=== PATIENT | male | born 1955 | race Caucasian/White ===

== ENCOUNTER → 2016-11-17 | Outpatient (CLI) | payer OTHER ==
[~2016-11-17] MED LIST: ATOR10TA88 PO; CIPR1TAB10 PO; CLON0.2T PO; DILT120C68 PO; LOSA50TA54 PO; METH10TA6 PO; OXYC7.5T65 PO
[2016-11-17 11:43] LABS: BLOOD UREA NITROGEN 17 mg/dl (7-18); BUN/CREATININE RATIO 20.5 (10-20); CREATININE 0.83 mg/dl (0.60-1.40)
[2016-11-17 11:48] LABS: PROSTATE SPECIFIC ANTIGEN < 0.010 ng/ml (0.000-4.000)
== END | disposition home or self-care (01) ==
LOC: C.LABBC 08:36
PROVIDERS: ATTEND Urology
DX: C61 Malignant neoplasm of prostate (principal)

== ENCOUNTER 2022-12-06 17:39 | Inpatient (IN) ==
--- NOTE | 2022-12-06 17:43 | ED Triage Note ---
Date of Service December 06, 2022 History of Present Illness This patient was briefly evaluated while in triage. An abbreviated physical exam was performed. This patient is a 67-year-old Male who presents to the ED for evaluation of shortness of breath. Patient has had a cough and low-grade fever. Physical Exam VITALS: Vitals are noted on the nurse's note and reviewed by myself. GENERAL: This is a 67-year-old male, in no acute distress, well-developed well- nourished. SKIN: The skin was without rashes. HEART: Regular rate and rhythm without murmurs gallops or rubs. LUNGS: Lung sounds diminished throughout. No retractions or accessory muscle use. NEURO: Patient was alert and oriented to person place and time. Initial orders for labs and / or imaging were placed and patient was placed in the waiting area until a bed is available. Please see further documentation for the full ED course.
[2022-12-06 19:00] LABS: Alanine Aminotransferase 32 U/L (7-52); Albumin Globulin Ratio 1.4 (0.9-2); Albumin Level 4.2 gm/dl (3.4-5.0); Alkaline Phosphatase 79 U/L (34-104); Anion Gap 7 (3-11); Aspartate Aminotransferase 28 U/L (13-39); BUN Creatinine Ratio 15.8 (10-20); Bilirubin,Total 0.4 mg/dl (0.2-1.0); Blood Urea Nitrogen 12 mg/dl (6-23); Carbon Dioxide 27 mmol/L (21-32); Chloride 104 mmol/L (98-107); Est GFR (Non-African American) 95.7 ml/min; Glucose 121 mg/dl (70-99(Fasting)); Sodium 138 mmol/L (136-145); Total Protein 7.2 gm/dl (6.0-8.3)
[2022-12-06 19:05] LABS: Troponin I High Sensitivity 9.8 pg/ml (0-20)
[2022-12-06 19:15] LABS: Basophils # (auto) 0.02 K/uL (0-0.2); Basophils % (auto) 0.3 %; Eosinophils # (auto) 0.13 K/uL (0-0.50); Eosinophils % (auto) 2.1 %; Hematocrit (blood only) 45.1 % (42.0-52.0); Hemoglobin 15.5 g/dl (14.0-18.0); Immature Granulocytes # (auto) 0.01 K/uL (0.01-0.20); Immature Granulocytes % (auto) 0.2 %; Lymphocytes # (auto) 1.17 K/uL (1.2-3.4); Lymphocytes % (auto) 19.1 %; Mean Corpuscular Hgb Conc 34.4 g/dL (32.0-36.0); Mean Corpuscular Volume 87.2 fL (80.0-100.0); Mean Platelet Volume 9.7 fL (9.4-12.4); Monocytes # (auto) 0.63 K/uL (0.11-0.59); Monocytes % (auto) 10.3 %; Neutrophils # (auto) 4.16 K/uL (1.40-6.50); Platelet Count 211 K/uL (130-400); RDW Coefficient of Variation 12.9 % (11.5-14.5); RDW Standard Deviation 41.6 fL (36.4-46.3); Red Blood Count 5.17 M/uL (4.70-6.10); White Blood Count 6.12 K/ul (4.8-10.8)
--- NOTE | 2022-12-06 19:15 | Emergency Department Note ---
Impression & Plan Hypoxia, Reactive airway disease, H/O: HTN (hypertension) ED Provider Note NAME: ZE DURON AGE: 67 SEX: M : 1955 ARRIVES VIA: Walk-In INFORMANT: Patient, ED PROVIDER(S): Israel Bales MD CHIEF COMPLAINT: Shortness of breath MEDICAL DECISION MAKING: Patient was seen for shortness of breath. Blood work had been obtained which showed a normal white count H&H and platelet count. Kidney function was unremarkable. Magnesium and BMP were ordered. COVID flu and RSV ordered. Patient's EKG with no signs of obvious arrhythmia or ischemia. Patient's mag and BNP did not show any abnormality. Upon reassessment the patient was noted to be hypoxemic and still has significant wheezing. The patient was ordered medication for his blood pressure in addition to DuoNeb. The patient was placed on supplemental nasal cannula oxygen. I did speak the on-call hospitalist Dr. Perdomo and the patient was admitted to the medicine service. Critical Care: I have personally spent 37 minutes of critical care time in direct management of this patient. This includes bedside care, interpretation of diagnostic studies, and testing, discussion with consultants, patient, and family members, and other require inpatient management activities. This 37 minutes is in excess of all separately billable procedures. Prior /Outside records reviewed: Did review the patient's weights and is virtually unchanged since September. Patient did have a cardiology visit by Dr. Ford in September 2022. The patient was seen for dizziness hypertension and hypercholesterolemia. Differential diagnosis: Reactive airway disease, pneumonia, pneumothorax, COPD, CHF, infections, cardiac ischemia, pulmonary embolism, musculoskeletal, gastrointestinal, as well as other pathologies. Diagnostics, as interpreted by me: ECG: Normal sinus rhythm, rate of 71, normal intervals left axis deviation T wave version aVL not in [address] elevations. Cardiac monitoring: An order was placed for continuous cardiac monitoring. The monitor shows a rate of 72 with sinus rhythm. Patient was placed on pulse oximetry Medical decision rules: None Imaging studies: See below HPI: Patient presents with shortness of breath and associated dry cough that is been ongoing since Monday. The patient has had worsening shortness of breath. No fevers or chills. The patient does have chronic lower extremity edema which is unchanged. No calf pain or erythema and the patient denies any recent surgeries procedures or hospitalizations and has no prior history of DVT or PE. The patient was most recently L back in September and had some similar symptoms at that time. No formal diagnosis. Patient denies any recent travel but the patient's who was at bedside did have some similar symptoms in the last week. Patient did take his morning medications. No chest pains nausea vomiting or diarrhea. He has noticed that he has some wheezing. No throat pain. PAST MEDICAL HISTORY: See Below PAST SURGICAL HISTORY: See Below SOCIAL HISTORY: See Below HOME MEDICATIONS: See Below ALLERGIES: See Below VITALS: See Below PHYSICAL EXAMINATION: GENERAL: NAD, wearing a mask, non-toxic. EYE EXAM: Normal conjunctiva. PERRL, no anisocoria and EOM's grossly intact w/o pain. NECK: Supple, no nuchal rigidity, no adenopathy, non-tender. No signs of meningismus. FROM of the neck with good chin to chest and neck extension. No stridor. LUNGS: Inspiratory and aspiratory wheezing noted. Normal chest wall mechanics. HEART: NSR, no MRG. ABDOMEN: Abdomen soft, non-tender, normo-active bowel sounds, no masses, no rebound or guarding. BACK: No CVA TTP. SKIN: No rashes and no bruising. UPPER EXTREMITIES: Upper extremities are grossly normal. LOWER EXTREMITIES: Grossly normal, 1+ symmetric bilateral lower extremity edema without any calf pain or erythema. Negative Homans' sign bilaterally. NEURO EXAM: A&O x3, cranial nerves II-XII grossly intact, normal speech, moves all 4 extremities. Past Med/Surg History Medical History Edema Graves disease Hypercholesterolemia Prostate cancer Type 2 diabetes mellitus Uncontrolled hypertension Surgical History History of tonsillectomy and adenoidectomy S/P appendectomy S/P prostatectomy S/P shoulder surgery Status post carpal tunnel release Family History Father Chronic bronchitis Mother Hypertension Stroke syndrome Denies family history of Ovarian cancer Prostate cancer Myocardial infarction Breast cancer Colorectal cancer Social History Smoking Status: Former smoker Tobacco Type: Cigarettes Age Started Using Tobacco: 14; Age Quit Using Tobacco: 52; packs per day: 1; Second Hand Exposure: No; Hx Alcohol Use: No Hx Substance Use: No Preferred Language: Palestinian Communication Ability: Effective Visual Impairment: No Limitations Hearing 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: 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 marital status: Current Living Situation: Spouse current occupational status: employed current occupation: [id number] How many Children do You have: 2 Feels Safe at Home: Yes Childhood Exposure to Second-Hand Smoke: No Dental Care, Regularly: Yes Physical Activity Frequency: Daily Seatbelt Use: always Sunscreen Use: No Allergies Allergies Allergy/AdvReac Type Severity Reaction Status Date / Time bee venom protein (honey bee) Allergy Severe FULL BODY Verified 12/06/22 19:49 SWELLING-NO SOB Home Meds Home Medications Medication Instructions Recorded Confirmed aspirin 81 mg tablet,delayed 81 mg PO DAILY 03/26/21 12/06/22 release clonidine HCl 0.3 mg tablet 0.3 mg PO DAILY PRN UNCONTROLLED 12/06/22 12/06/22 HYPERTENSION losartan 50 mg-hydrochlorothiazide 1 tab PO BID 12/06/22 12/06/22 12.5 mg tablet metformin 500 mg tablet 500 mg PO BID 12/06/22 12/06/22 Previous Rx's Medication Instructions Recorded meloxicam 15 mg tablet 15 mg PO DAILY #30 tabs 08/08/22 cyclobenzaprine 10 mg tablet 10 mg PO TID PRN muscle spasm #60 08/23/22 tabs doxazosin 4 mg tablet 4 mg PO DAILY #90 tabs 09/19/22 atorvastatin 10 mg tablet 10 mg PO DAILY #90 tabs 10/03/22 Results & Data (ED) Vital Signs Vital Signs - 24 hr 12/06/22 17:43 12/06/22 18:20 12/06/22 20:38 Temperature 36.8 C Temperature Source Temporal Artery Scan Pulse Rate 80 Pulse Rate [Right Finger] 71 Respiratory Rate 18 20 17 Respiratory Effort / Characteristics Non-Labored Spontaneous Non-Labored Spontaneous Respiratory Depth Normal Normal Respiratory Pattern Regular Blood Pressure 232/143 H Blood Pressure [Right Arm] 180/107 H Blood Pressure Mean 172 Blood Pressure Mean [Right Arm] 131 Pulse Oximetry 93 93 89 L Oxygen Delivery Method Room Air Room Air Sepsis Recent Fever Within 48 Hours No Sepsis New/Unexplained Change in Mental Status No Sepsis Action Taken by Nursing No Action Required 12/06/22 21:00 12/06/22 21:30 Temperature Temperature Source Pulse Rate 93 H 105 H Pulse Rate [Right Finger] Respiratory Rate 20 Respiratory Effort / Characteristics Respiratory Depth Respiratory Pattern Blood Pressure 193/88 H Blood Pressure [Right Arm] Blood Pressure Mean 123 Blood Pressure Mean [Right Arm] Pulse Oximetry 90 92 Oxygen Delivery Method Sepsis Recent Fever Within 48 Hours Sepsis New/Unexplained Change in Mental Status Sepsis Action Taken by Correction Medications Current Medication List: was personally reviewed by me Laboratory Data Attestation: I reviewed the patient's lab results. 12/06/22 18:15 12/06/22 18:15 Lab Results 12/06/22 12/06/22 12/06/22 Range/Units 18:15 18:15 18:15 WBC 6.12 (4.8-10.8) K/ul RBC 5.17 (4.70-6.10) M/uL Hgb 15.5 (14.0-18.0) g/dl Hct 45.1 (42.0-52.0) % MCV 87.2 (80.0-100.0) fL MCH 30.0 (25.0-34.0) pg MCHC 34.4 (32.0-36.0) g/dL RDW Std Deviation 41.6 (36.4-46.3) fL RDW Coeff of Pierre 12.9 (11.5-14.5) % Plt Count 211 (130-400) K/uL MPV 9.7 (9.4-12.4) fL Immature Gran % (Auto) 0.2 % Neut % (Auto) 68.0 % Lymph % (Auto) 19.1 % [place] % (Auto) 10.3 % Eos % (Auto) 2.1 % Baso % (Auto) 0.3 % Neut # (Auto) 4.16 (1.40-6.50) K/uL Lymph # (Auto) 1.17 L (1.2-3.4) K/uL [place] # (Auto) 0.63 H (0.11-0.59) K/uL Eos # (Auto) 0.13 (0-0.50) K/uL Baso # (Auto) 0.02 (0-0.2) K/uL Immature Gran # (Auto) 0.01 (0.01-0.20) K/uL Sodium 138 (136-145) mmol/L Potassium 4.0 (3.5-5.1) mmol/L Chloride 104 (98-107) mmol/L Carbon Dioxide 27 (21-32) mmol/L Anion Gap 7 (3-11) BUN 12 (6-23) mg/dl Creatinine 0.76 (0.6-1.4) mg/dl Est Cr Clr Drug Dosing Not Reportable Est GFR ( Amer) 111.0 ml/min Est GFR (Non-Af Amer) 95.7 ml/min BUN/Creatinine Ratio 15.8 (10-20) Glucose 121 H (70-99(Fasting)) mg/dl Calcium 9.0 (8.5-10.1) mg/dl Magnesium 1.8 (1.7-2.4) mg/dl Total Bilirubin 0.4 (0.2-1.0) mg/dl AST 28 (13-39) U/L ALT 32 (7-52) U/L Alkaline Phosphatase 79 (34-104) U/L Troponin I High Sens 9.8 (0-20) pg/ml B-Natriuretic Peptide (0-100) pg/ml Total Protein 7.2 (6.0-8.3) gm/dl Albumin 4.2 (3.4-5.0) gm/dl Globulin 3.0 (2.5-4.0) gm/dl Albumin/Globulin Ratio 1.4 (0.9-2) SARS-CoV-2 (PCR) NEGATIVE (Negative) Influenza Type A (PCR) Negative (Neg) Influenza Type B (PCR) Negative (Neg) RSV (RT-PCR) Negative (Neg) 12/06/22 Range/Units 18:15 WBC (4.8-10.8) K/ul RBC (4.70-6.10) M/uL Hgb (14.0-18.0) g/dl Hct (42.0-52.0) % MCV (80.0-100.0) fL MCH (25.0-34.0) pg MCHC (32.0-36.0) g/dL RDW Std Deviation (36.4-46.3) fL RDW Coeff of Pierre (11.5-14.5) % Plt Count (130-400) K/uL MPV (9.4-12.4) fL Immature Gran % (Auto) % Neut % (Auto) % Lymph % (Auto) % [place] % (Auto) % Eos % (Auto) % Baso % (Auto) % Neut # (Auto) (1.40-6.50) K/uL Lymph # (Auto) (1.2-3.4) K/uL [place] # (Auto) (0.11-0.59) K/uL Eos # (Auto) (0-0.50) K/uL Baso # (Auto) (0-0.2) K/uL Immature Gran # (Auto) (0.01-0.20) K/uL Sodium (136-145) mmol/L Potassium (3.5-5.1) mmol/L Chloride (98-107) mmol/L Carbon Dioxide (21-32) mmol/L Anion Gap (3-11) BUN (6-23) mg/dl Creatinine (0.6-1.4) mg/dl Est Cr Clr Drug Dosing Est GFR ( Amer) ml/min Est GFR (Non-Af Amer) ml/min BUN/Creatinine Ratio (10-20) Glucose (70-99(Fasting)) mg/dl Calcium (8.5-10.1) mg/dl Magnesium (1.7-2.4) mg/dl Total Bilirubin (0.2-1.0) mg/dl AST (13-39) U/L ALT (7-52) U/L Alkaline Phosphatase (34-104) U/L Troponin I High Sens (0-20) pg/ml B-Natriuretic Peptide 32 (0-100) pg/ml Total Protein (6.0-8.3) gm/dl Albumin (3.4-5.0) gm/dl Globulin (2.5-4.0) gm/dl Albumin/Globulin Ratio (0.9-2) SARS-CoV-2 (PCR) (Negative) Influenza Type A (PCR) (Neg) Influenza Type B (PCR) (Neg) RSV (RT-PCR) (Neg) Administered Medications Discontinued Medications Albuterol (Albut/Ipratrop 3mg/0.5mg Neb 3 Ml Vial) 6 ml NEB NOW STA; Protocol Stop: 12/06/22 19:22 Last Admin: 12/06/22 19:57 Dose: 6 ml Documented By: ROLLY Albuterol (Albut/Ipratrop 3mg/0.5mg Neb 3 Ml Vial) 3 ml NEB NOW STA; Protocol Stop: 12/06/22 20:54 Last Admin: 12/06/22 21:00 Dose: 3 ml Documented By: ROLLY Furosemide (Furosemide 40 Mg/4 Ml Vial) 40 mg IV ONE ONE Stop: 12/06/22 20:54 Last Admin: 12/06/22 21:00 Dose: 40 mg Documented By: ROLLY HCTZ/Losartan Potassium (Losartan/Hctz 50/12.5mg Tab) 1 tab PO NOW STA Stop: 12/06/22 20:54 Last Admin: 12/06/22 22:10 Dose: 1 tab Documented By: CHERI Magnesium Sulfate/Dextrose (Magnesium Sulfate / D5w) 1 gm in 100 mls @ 200 mls/hr IV Q30M KRYSTLE Stop: 12/06/22 20:21 Last Infusion: 12/06/22 22:05 Dose: 0 mls/hr Documented By: Admin: 12/06/22 21:00 Dose: 200 mls/hr Documented By: Infusion: 12/06/22 20:27 Dose: 200 mls/hr Documented By: Admin: 12/06/22 19:57 Dose: 200 mls/hr Documented By: ROLLY Azithromycin 500 mg/ Dextrose 255 mls @ 125 mls/hr IV 2230 ONE Stop: 12/07/22 00:32 Last Infusion: 12/07/22 00:41 Dose: 0 mls/hr Documented By: Admin: 12/06/22 22:24 Dose: 125 mls/hr Documented By: CHERI Methylprednisolone (Methylprednisolone 125 Mg/2 Ml Vial) 125 mg IV NOW STA Stop: 12/06/22 19:22 Last Admin: 12/06/22 19:57 Dose: 125 mg Documented By: ROLLY Imaging Data Radiologist's Impression: Chest X-Ray 12/06/22 17:43 XR chest 1V portable HISTORY: Dyspnea COMPARISON: Chest 08/26/2016. FINDINGS: The lungs are clear. Cardiac silhouette is normal in size. No pleural effusions. No pneumothorax. IMPRESSION: No acute process. ACT 112: Negative or not required by law. Electronically signed by: Davy Joe M.D. 12/06/2022 7:27 PM Discharge Plan Visit Data Chief Complaint: Shortness of Breath/Dyspnea Stated Complaint: SOB,HARD TO BREATH WHEN SLEEP, ED Provider: Israel Bales Discharge Problem: Hypoxia, Reactive airway disease, H/O: HTN (hypertension) Patient Disposition: Admitted As Inpatient Discharge Instructions Interventions: ED Discharge Assessment Last Done: 12/06/22 23:58
[2022-12-06] MEDS ORDERED: ALBUT/IPRATROP 3MG/0.5MG NEB 3 ML VIAL NEB STA ×2 (19:21→20:53)
[2022-12-06] MEDS ORDERED: methylPREDNISolone 125 MG/2 ML VIAL IV STA (19:21)
--- NOTE | 2022-12-06 19:28 | XRay Report ---
XR chest 1V portable HISTORY: Dyspnea COMPARISON: Chest 08/26/2016. FINDINGS: The lungs are clear. Cardiac silhouette is normal in size. No pleural effusions. No pneumot horax. IMPRESSION: No acute process. ACT 112: Negative or not required by law. Electronically signed by: Davy Joe M.D. 12/06/2022 7:27 PM
[2022-12-06 19:34] LABS: Influenza A virus by PCR Negative (Neg); Influenza B virus by PCR Negative (Neg); RSV by PCR Negative (Neg); SARS CoV2 RNA(COVID-19) Ceph NEGATIVE (Negative)
[2022-12-06 19:53] LABS: Magnesium 1.8 mg/dl (1.7-2.4)
[2022-12-06] MEDS: MAGNESIUM SULFATE / D5W 1 GM/100 ML BAG IV SCH ×2 (19:57→21:00)
[2022-12-06] MEDS ORDERED: FUROSEMIDE 40 MG/4 ML VIAL IV ONE (20:53)
[2022-12-06] MEDS ORDERED: LOSARTAN/HCTZ 50/12.5MG TAB PO STA (20:53)
--- NOTE | 2022-12-06 21:59 | History & Physical Report ---
Date of Service December 06, 2022 Assessment & Plan (1) Acute respiratory failure with hypoxia: (2) Type 2 diabetes mellitus: (3) Hypercholesterolemia: (4) Graves disease: (5) Benign essential hypertension: (6) Lumbar spinal stenosis: (7) Reactive airway disease: (8) Lower extremity edema: Plan Acute respiratory failure with hypoxia/asthmatic bronchitis- Received Solu-Medrol 125 mg IV and duo nebs x2 from the ED Continue Solu-Medrol 40 mg IV every 8 hours. Duonebs every 4 hours while awake and every 2 hours when necessary. Guaifenesin extended release 1200 mg p.o. twice daily Pulmicort Respules 0.5 mg inhaled twice daily Azithromycin 500 mg IV daily Nasal cannula oxygen, titrate to keep pulse ox 92-94% Lower extremity edema- Received furosemide 40 mg IV from the ED Continue furosemide 40 mg IV every morning Follow clinical examination Serial renal profile and magnesium every morning Diabetes mellitus- Hold metformin Place on Accu-Cheks with NovoLog SSI Check hemoglobin A1c Hypertension- Continue losartan/HCTZ twice daily BPH- Continue doxazosin 4 mg p.o. daily Hyperlipidemia- Continue atorvastatin 10 mg daily History of Present Illness Chief Complaint: The patient presents to the emergency department with complaint of increasing frequency of cough, worsening shortness of breath and dyspnea on exertion, and persistent lower extremity edema. Primary Care Provider: Keagan Spencer, RADHA, AKOSUA The patient is a 67-year-old male with past medical history including hypertension, bilateral hip pain, hypertension, lumbar spinal stenosis, Graves' disease, hypercholesterolemia, diabetes mellitus and morbid obesity. He presents to the emergency department with symptoms as noted above. From the ED he received the following, DuoNeb's x2, magnesium sulfate 1 g IV, methylprednisolone 125 mg IV and furosemide 40 mg IV. Allergies Allergy/AdvReac Type Severity Reaction Status Date / Time bee venom protein (honey bee) Allergy Severe FULL BODY Verified 12/06/22 19:49 SWELLING-NO SOB Home Medications Medication Instructions Recorded Confirmed Type aspirin 81 mg tablet,delayed 81 mg PO DAILY 03/26/21 12/06/22 History release meloxicam 15 mg tablet 15 mg PO DAILY #30 tabs 08/08/22 12/06/22 Rx cyclobenzaprine 10 mg tablet 10 mg PO TID PRN muscle spasm #60 08/23/22 12/06/22 Rx tabs doxazosin 4 mg tablet 4 mg PO DAILY #90 tabs 09/19/22 12/06/22 Rx atorvastatin 10 mg tablet 10 mg PO DAILY #90 tabs 10/03/22 12/06/22 Rx clonidine HCl 0.3 mg tablet 0.3 mg PO DAILY PRN UNCONTROLLED 12/06/22 12/06/22 History HYPERTENSION losartan 50 mg-hydrochlorothiazide 1 tab PO BID 12/06/22 12/06/22 History 12.5 mg tablet metformin 500 mg tablet 500 mg PO BID 12/06/22 12/06/22 History Past Med/Surg History Medical History (Updated 12/07/22 @ 03:04 by Jeremi Villarreal MD) Edema Graves disease Hypercholesterolemia Prostate cancer Type 2 diabetes mellitus Uncontrolled hypertension Surgical History History of tonsillectomy and adenoidectomy S/P appendectomy S/P prostatectomy S/P shoulder surgery Status post carpal tunnel release Family History Father Chronic bronchitis Mother Hypertension Stroke syndrome Denies family history of Ovarian cancer Prostate cancer Myocardial infarction Breast cancer Colorectal cancer Social History Smoking Status: Former smoker Tobacco Type: Cigarettes Age Started Using Tobacco: 14; Age Quit Using Tobacco: 52; packs per day: 1; Second Hand Exposure: No; Hx Alcohol Use: No Hx Substance Use: No Preferred Language: Sammarinese Communication Ability: Effective Visual Impairment: No Limitations Hearing Ability: Normal 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 and Voice marital status: Current Living Situation: Spouse current occupational status: employed current occupation: [id number] How many Children do You have: 2 Feels Safe at Home: Yes Childhood Exposure to Second-Hand Smoke: No Dental Care, Regularly: Yes Physical Activity Frequency: Daily Seatbelt Use: always Sunscreen Use: No Review of Systems Review of Systems: The patient denies chest pain, palpitations, sore throat, fevers, chills, sweats, nausea, vomiting, diarrhea , constipation, abdominal pain, pelvic pain, blood in urine or stool, dysuria, urinary frequency or urgency, lightheadedness, dizziness, headache, memory loss, loss of consciousness, rash, abnormal bruising or bleeding, imbalance, focal or generalized weakness, numbness or tingling in arms or legs, generalized arthralgias or myalgias, back or neck pain, or night sweats. The review of systems is otherwise negative other than for that already noted above, and at least 10 systems have been reviewed. Physical Exam Physical Exam: The patient is awake, alert and oriented 3, well developed and well nourished, normocephalic and atraumatic, lying in bed and in mild distress. HEENT--PERRL, EOMI, mucous membranes and oropharynx dry. Neck--supple. No JVD. No bruits. Thyroid normal, trachea midline, no adenopathy. Heart--normal S1 and S2. No murmurs, rubs or gallops. Lungs--inspiratory and expiratory wheezes bilaterally throughout. Mild intermittent respiratory distress, no accessory muscle use. Abdomen--normal bowel sounds and soft. Nontender. Nondistended, no hernias or masses, no organomegaly. Extremities--no cyanosis or clubbing. There is 1+ bilateral pretibial pitting edema Dermatologic--normal skin turgor, normal color, no abnormal lymph nodes, no rash. Neurologic--cranial nerves II through XII grossly intact. Rheumatologic--normal range of motion. Psychiatric--normal affect. Results & Data Results & Data ([facility]) Vital Signs (Past 12 Hours) Vital Signs Temp Pulse Pulse Resp BP BP Pulse Ox 12/06/22 18:20 71 20 180/107 H 93 12/06/22 17:43 36.8 C 80 18 232/143 H 93 O2 Del Method 12/06/22 18:20 Room Air 12/06/22 17:43 Room Air Laboratory Results Laboratory Results WBC 6.12 K/ul (4.8-10.8) 12/06/22 18:15 RBC 5.17 M/uL (4.70-6.10) 12/06/22 18:15 Hgb 15.5 g/dl (14.0-18.0) 12/06/22 18:15 Hct 45.1 % (42.0-52.0) 12/06/22 18:15 MCV 87.2 fL (80.0-100.0) 12/06/22 18:15 MCH 30.0 pg (25.0-34.0) 12/06/22 18:15 MCHC 34.4 g/dL (32.0-36.0) 12/06/22 18:15 RDW Std Deviation 41.6 fL (36.4-46.3) 12/06/22 18:15 RDW Coeff of Pierre 12.9 % (11.5-14.5) 12/06/22 18:15 Plt Count 211 K/uL (130-400) 12/06/22 18:15 MPV 9.7 fL (9.4-12.4) 12/06/22 18:15 Immature Gran % (Auto) 0.2 % 12/06/22 18:15 Neut % (Auto) 68.0 % 12/06/22 18:15 Lymph % (Auto) 19.1 % 12/06/22 18:15 [place] % (Auto) 10.3 % 12/06/22 18:15 Eos % (Auto) 2.1 % 12/06/22 18:15 Baso % (Auto) 0.3 % 12/06/22 18:15 Neut # (Auto) 4.16 K/uL (1.40-6.50) 12/06/22 18:15 Lymph # (Auto) 1.17 K/uL (1.2-3.4) L 12/06/22 18:15 [place] # (Auto) 0.63 K/uL (0.11-0.59) H 12/06/22 18:15 Eos # (Auto) 0.13 K/uL (0-0.50) 12/06/22 18:15 Baso # (Auto) 0.02 K/uL (0-0.2) 12/06/22 18:15 Immature Gran # (Auto) 0.01 K/uL (0.01-0.20) 12/06/22 18:15 Sodium 138 mmol/L (136-145) 12/06/22 18:15 Potassium 4.0 mmol/L (3.5-5.1) 12/06/22 18:15 Chloride 104 mmol/L (98-107) 12/06/22 18:15 Carbon Dioxide 27 mmol/L (21-32) 12/06/22 18:15 Anion Gap 7 (3-11) 12/06/22 18:15 BUN 12 mg/dl (6-23) 12/06/22 18:15 Creatinine 0.76 mg/dl (0.6-1.4) 12/06/22 18:15 Est Cr Clr Drug Dosing Not Reportable 12/06/22 18:15 Est GFR ( Amer) 111.0 ml/min 12/06/22 18:15 Est GFR (Non-Af Amer) 95.7 ml/min 12/06/22 18:15 BUN/Creatinine Ratio 15.8 (10-20) 12/06/22 18:15 Glucose 121 mg/dl (70-99(Fasting)) H 12/06/22 18:15 Calcium 9.0 mg/dl (8.5-10.1) 12/06/22 18:15 Magnesium 1.8 mg/dl (1.7-2.4) 12/06/22 18:15 Total Bilirubin 0.4 mg/dl (0.2-1.0) 12/06/22 18:15 AST 28 U/L (13-39) 12/06/22 18:15 ALT 32 U/L (7-52) 12/06/22 18:15 Alkaline Phosphatase 79 U/L (34-104) 12/06/22 18:15 Troponin I High Sens 9.8 pg/ml (0-20) 12/06/22 18:15 B-Natriuretic Peptide 32 pg/ml (0-100) 12/06/22 18:15 Total Protein 7.2 gm/dl (6.0-8.3) 12/06/22 18:15 Albumin 4.2 gm/dl (3.4-5.0) 12/06/22 18:15 Globulin 3.0 gm/dl (2.5-4.0) 12/06/22 18:15 Albumin/Globulin Ratio 1.4 (0.9-2) 12/06/22 18:15 Urine Color Yellow 12/07/22 00:48 Urine Appearance Clear (Clear) 12/07/22 00:48 Urine pH 5.0 (4.5-7.5) 12/07/22 00:48 Ur Specific [place] 1.008 (1.000-1.030) 12/07/22 00:48 Urine Protein Negative (Negative) 12/07/22 00:48 Urine Glucose (UA) 1+ (Negative) H 12/07/22 00:48 Urine Ketones Negative (Negative) 12/07/22 00:48 Urine Blood Negative (Negative) 12/07/22 00:48 Urine Nitrite Negative (Negative) 12/07/22 00:48 Urine Bilirubin Negative (Negative) 12/07/22 00:48 Urine Urobilinogen Negative (Negative) 12/07/22 00:48 Ur Leukocyte Esterase Negative (Negative) 12/07/22 00:48 SARS-CoV-2 (PCR) NEGATIVE (Negative) 12/06/22 18:15 Influenza Type A (PCR) Negative (Neg) 12/06/22 18:15 Influenza Type B (PCR) Negative (Neg) 12/06/22 18:15 RSV (RT-PCR) Negative (Neg) 12/06/22 18:15 Impressions Chest X-Ray 12/06/22 17:43 XR chest 1V portable HISTORY: Dyspnea COMPARISON: Chest 08/26/2016. FINDINGS: The lungs are clear. Cardiac silhouette is normal in size. No pleural effusions. No pneumothorax. IMPRESSION: No acute process. ACT 112: Negative or not required by law. Electronically signed by: Davy Joe M.D. 12/06/2022 7:27 PM Code Status & VTE Plan Code Status Full code VTE Prophylaxis Plan VTE Prophylaxis will be ordered: Yes PG Care Time/CCT Total # of Minutes Spent Total Time Spent with Patient: Total time spent is greater than 50% in coordination of care (as documented) at patient's floor/unit and/or counseling patient: Coding Level of Care Code 60582 INT INP/OBS CARE 3/75MIN Diagnoses Acute respiratory failure with hypoxia J96.01 Type 2 diabetes mellitus E11.9 Diabetes mellitus oysterman insulin use: without mcc use Diabetes mellitus complication status: without complication Hypercholesterolemia E78.00 Graves disease E05.00 Benign essential hypertension I10 Lumbar spinal stenosis M48.061 Reactive airway disease J45.909 Asthma complication type: with acute exacerbation Asthma severity: unspecified severity Lower extremity edema R60.0 (1) Type 2 diabetes mellitus Diabetes mellitus oysterman insulin use: without mcc use Diabetes mellitus complication status: without complication Qualified Code(s): E11.9 - Type 2 diabetes mellitus without complications (2) Reactive airway disease Asthma complication type: with acute exacerbation Asthma severity: unspecified severity
[2022-12-06] MEDS ORDERED: AZITHROMYCIN 500 MG in DEXTROSE 5% 250 ML IV ONE (22:30)
[2022-12-06] MEDS ORDERED: DEXTROSE 50% 50 ML SYRINGE IV PRN (23:58)
[2022-12-06] MEDS ORDERED: ACETAMINOPHEN 325 MG TAB PO PRN (23:58)
[2022-12-06] MEDS ORDERED: GLUCOSE 10 TAB/TUBE PO PRN (23:58)
[2022-12-06] MEDS ORDERED: GLUCAGON FOR INJ 1 MG VIAL SQ PRN (23:58)
[2022-12-06] MEDS ORDERED: CARBOHYDRATES FOR HYPOGLYCEMIA PO PRN (23:58)
[2022-12-06] MEDS ORDERED: ONDANSETRON INJ 2 MG/ML 2 ML VIAL IV PRN (23:58)
[2022-12-06] MEDS ORDERED: GLUCOSE 40% GEL 15 GM TUBE PO PRN (23:58)
[2022-12-06] MEDS ORDERED: CYCLOBENZAPRINE HCL 10 MG TAB PO PRN (23:58)
[2022-12-07 01:00] LABS: Appearance Urine Clear (Clear); Bilirubin Urine Negative (Negative); Blood Urine Negative (Negative); Color Urine Yellow; Glucose Urine UA 1+ (Negative); Ketones Urine Negative (Negative); Leukocyte Esterase Urine Negative (Negative); Nitrite Urine Negative (Negative); Protein Urine Negative (Negative); Specific Gravity Urine 1.008 (1.000-1.030); Urobilinogen Urine Negative (Negative)
[2022-12-07] MEDS: methylPREDNISolone 40 MG in SYRINGE 0 ML IV SCH ×3 (04:04→20:55)
[2022-12-07 04:37] LABS: Basophils # (auto) 0.01 K/uL (0-0.2); Basophils % (auto) 0.2 %; Hematocrit (blood only) 45.7 % (42.0-52.0); Hemoglobin 15.5 g/dl (14.0-18.0); Immature Granulocytes # (auto) 0.02 K/uL (0.01-0.20); Immature Granulocytes % (auto) 0.4 %; Lymphocytes # (auto) 0.41 K/uL (1.2-3.4); Mean Corpuscular Hgb Conc 33.9 g/dL (32.0-36.0); Mean Corpuscular Volume 85.6 fL (80.0-100.0); Mean Platelet Volume 9.6 fL (9.4-12.4); Monocytes # (auto) 0.08 K/uL (0.11-0.59); Monocytes % (auto) 1.8 %; Neutrophils # (auto) 4.03 K/uL (1.40-6.50); Neutrophils % (auto) 88.6 %; Platelet Count 222 K/uL (130-400); RDW Standard Deviation 40.3 fL (36.4-46.3); Red Blood Count 5.34 M/uL (4.70-6.10); White Blood Count 4.55 K/ul (4.8-10.8)
[2022-12-07 04:50] LABS: Albumin Level 4.5 gm/dl (3.4-5.0); Anion Gap 10 (3-11); BUN Creatinine Ratio 14.5 (10-20); Blood Urea Nitrogen 11 mg/dl (6-23); Calcium 9.4 mg/dl (8.5-10.1); Carbon Dioxide 27 mmol/L (21-32); Chloride 98 mmol/L (98-107); Est GFR (Non-African American) 95.7 ml/min; Glucose 215 mg/dl (70-99(Fasting)); Magnesium 2.1 mg/dl (1.7-2.4); Phosphorus 3.3 mg/dl (2.5-4.9); Potassium 3.9 mmol/L (3.5-5.1); Sodium 135 mmol/L (136-145)
[2022-12-07 06:32] LABS: Estimated Average Glucose 154 mg/dl
[2022-12-07] MEDS: ALBUT/IPRATROP 3MG/0.5MG NEB 3 ML VIAL NEB SCH ×4 (07:39→19:36)
[2022-12-07] MEDS: BUDESONIDE 0.5 MG/2 ML VIAL (PULMICORT) NEB SCH ×2 (07:39→19:34)
[2022-12-07] MEDS: ASPIRIN 81 MG ECTAB PO SCH (08:14)
[2022-12-07] MEDS: guaiFENesin 600 MG TABCR PO SCH ×2 (08:14→20:55)
[2022-12-07] MEDS: INSULIN ASPART PER UNIT SC SCH ×4 (08:15→20:32)
[2022-12-07] MEDS: FUROSEMIDE 40 MG/4 ML VIAL IV SCH (08:15)
[2022-12-07] MEDS: ATORVASTATIN 10 MG TAB PO SCH (08:15)
[2022-12-07] MEDS: DOXAZosin MESYLATE 4 MG TAB PO SCH (08:15)
[2022-12-07] MEDS: LOSARTAN/HCTZ 50/12.5MG TAB PO SCH ×2 (08:15→20:54)
--- NOTE | 2022-12-07 15:25 | Electrocardiogram Report ---
Test Reason : Blood Pressure : / mmHG Vent. Rate : 071 BPM Atrial Rate : 071 BPM P-R Int : 170 ms QRS Dur : 086 ms QT Int : 404 ms P-R-T Axes : 060 -28 079 degrees QTc Int : 439 ms Normal sinus rhythm Normal ECG When compared with ECG of 29-SEP-2004 12:14, QRS axis Shifted left Confirmed by Rajan Pretty ([id number]) on 12/07/2022 3:25:11 PM Referred By: REFERRED SELF Confirmed By:Rajan Pretty
--- NOTE | 2022-12-07 17:41 | Hospitalist Progress Note ---
Date of Service December 07, 2022 Assessment & Plan (1) Acute respiratory failure with hypoxia: Plan: secondary to acute bronchitis, likley viral Continue Solu-Medrol 40 mg IV every 8 hours. Duonebs every 4 hours while awake and every 2 hours when necessary. Guaifenesin extended release 1200 mg p.o. twice daily Pulmicort Respules 0.5 mg inhaled twice daily Azithromycin 500 mg IV daily Nasal cannula oxygen, titrate to keep pulse ox 92-94% (2) Benign essential hypertension: Plan: BP is under good control continue home meds (3) Type 2 diabetes mellitus: Plan: Blood glucose under good control will monitor in view of steroids hold metformin (4) Hypercholesterolemia: (5) Graves disease: (6) Lumbar spinal stenosis: (7) Reactive airway disease: (8) Lower extremity edema: Plan hopefully d/c in the next 24 hrs Admission and Anticipated Discharge Date Admission Date: December 06, 2022 Subjective patient seen and examined, he speaks Icelandic, but by the bedside to interpret. still has some SOB, especially on exertion Review of Systems Review of Systems: All systems reviewed are negative, apart from the ones contained in the history. Physical Exam Physical Exam: The patient is awake, alert and oriented 3, well developed and well nourished, normocephalic and atraumatic, lying in bed and in no acute distress. HEENT--PERRL, EOMI, mucous membranes and oropharynx mildly dry Neck--supple. No JVD. No bruits. Thyroid normal, trachea midline, no adenopathy. Heart--normal S1 and S2. No murmurs, rubs or gallops. Lungs--Reduced air entry Abdomen--normal bowel sounds and soft. Mild epigastric and left sided abdominal pain Extremities--no cyanosis or clubbing. No edema. Dermatologic--normal skin turgor, normal color, no abnormal lymph nodes, no rash. Neurologic--cranial nerves II through XII grossly intact. Rheumatologic--normal range of motion. Psychiatric--normal affect. Results & Data Results & Data ([facility]) Vital Signs (Past 12 Hours) Vital Signs Temp Pulse Resp BP Pulse Ox O2 Del Method O2 Flow Rate 12/07/22 16:07 98.6 F 79 20 125/51 L 93 Nasal Cannula 4 12/07/22 14:09 75 18 94 Nasal Cannula 4 12/07/22 11:39 76 20 94 Nasal Cannula 4 12/07/22 11:34 98.6 F 78 20 130/60 94 Nasal Cannula 4 12/07/22 07:39 101 H 22 91 Nasal Cannula 4 12/07/22 07:22 Nasal Cannula 4 12/07/22 07:16 66 18 161/74 H 93 Nasal Cannula PG Care Time/CCT Total # of Minutes Spent Total Time Spent with Patient: Total time spent is greater than 50% in coordination of care (as documented) at patient's floor/unit and/or counseling patient: Coding Level of Care Code 00970 SUB INP/OBS CARE 235MIN Diagnoses Acute respiratory failure with hypoxia J96.01 Benign essential hypertension I10 Type 2 diabetes mellitus E11.9 Diabetes mellitus deputy juvenile officer insulin use: without [facility] use Diabetes mellitus complication status: without complication Hypercholesterolemia E78.00 Graves disease E05.00 Lumbar spinal stenosis M48.061 Reactive airway disease J45.909 Asthma complication type: with acute exacerbation Asthma severity: unspecified severity Lower extremity edema R60.0 Time Spent (min) 35 (1) Type 2 diabetes mellitus Diabetes mellitus [facility] insulin use: without deputy juvenile officer use Diabetes mellitus complication status: without complication Qualified Code(s): E11.9 - Type 2 diabetes mellitus without complications (2) Reactive airway disease Asthma complication type: with acute exacerbation Asthma severity: unspecified severity
[2022-12-07] MEDS ORDERED: AZITHROMYCIN 500 MG in DEXTROSE 5% 250 ML IV SCH (22:00)
[2022-12-08] MEDS: methylPREDNISolone 40 MG in SYRINGE 0 ML IV SCH ×2 (04:29→12:13)
[2022-12-08 06:12] LABS: Hematocrit (blood only) 45.5 % (42.0-52.0); Hemoglobin 15.7 g/dl (14.0-18.0); Mean Corpuscular Hemoglobin 29.9 pg (25.0-34.0); Mean Corpuscular Hgb Conc 34.5 g/dL (32.0-36.0); Mean Corpuscular Volume 86.7 fL (80.0-100.0); Mean Platelet Volume 9.4 fL (9.4-12.4); Platelet Count 239 K/uL (130-400); RDW Standard Deviation 41.2 fL (36.4-46.3); Red Blood Count 5.25 M/uL (4.70-6.10); White Blood Count 8.81 K/ul (4.8-10.8)
[2022-12-08 06:25] LABS: Albumin Level 4.2 gm/dl (3.4-5.0); Anion Gap 8 (3-11); BUN Creatinine Ratio 35.3 (10-20); Blood Urea Nitrogen 30 mg/dl (6-23); Calcium 9.1 mg/dl (8.5-10.1); Carbon Dioxide 31 mmol/L (21-32); Chloride 99 mmol/L (98-107); Est GFR (Non-African American) 91.4 ml/min; Glucose 160 mg/dl (70-99(Fasting)); Magnesium 2.4 mg/dl (1.7-2.4); Phosphorus 4.1 mg/dl (2.5-4.9); Potassium 4.1 mmol/L (3.5-5.1); Sodium 138 mmol/L (136-145)
[2022-12-08 06:45] LABS: Basophils # (auto) 0.02 K/uL (0-0.2); Basophils % (auto) 0.2 %; Immature Granulocytes # (auto) 0.02 K/uL (0.01-0.20); Immature Granulocytes % (auto) 0.2 %; Lymphocytes # (auto) 1.34 K/uL (1.2-3.4); Lymphocytes % (auto) 15.2 %; Monocytes % (auto) 6.8 %; Neutrophils # (auto) 6.83 K/uL (1.40-6.50); Neutrophils % (auto) 77.6 %
[2022-12-08] MEDS: ALBUT/IPRATROP 3MG/0.5MG NEB 3 ML VIAL NEB SCH ×3 (07:00→16:04)
[2022-12-08] MEDS: BUDESONIDE 0.5 MG/2 ML VIAL (PULMICORT) NEB SCH (07:00)
[2022-12-08] MEDS: INSULIN ASPART PER UNIT SC SCH ×3 (08:21→17:28)
[2022-12-08] MEDS: guaiFENesin 600 MG TABCR PO SCH (08:24)
[2022-12-08] MEDS: ATORVASTATIN 10 MG TAB PO SCH (08:24)
[2022-12-08] MEDS: ASPIRIN 81 MG ECTAB PO SCH (08:24)
[2022-12-08] MEDS: LOSARTAN/HCTZ 50/12.5MG TAB PO SCH (08:24)
[2022-12-08] MEDS: DOXAZosin MESYLATE 4 MG TAB PO SCH (08:24)
[2022-12-08] MEDS: FUROSEMIDE 40 MG/4 ML VIAL IV SCH (08:25)
--- NOTE | 2022-12-08 15:01 | Discharge Summary ---
Date of Service December 08, 2022 Admission HPI Per Admitting Provider The patient is a 67-year-old male with past medical history including hypertension, bilateral hip pain, hypertension, lumbar spinal stenosis, Graves' disease, hypercholesterolemia, diabetes mellitus and morbid obesity. He presents to the emergency department with symptoms as noted above. From the ED he received the following, DuoNeb's x2, magnesium sulfate 1 g IV, methylprednisolone 125 mg IV and furosemide 40 mg IV. Principal Diagnosis acute respiratory failure with hypoxia Discharge Exam The patient is awake, alert and oriented 3, well developed and well nourished, normocephalic and atraumatic, lying in bed and in no acute distress. HEENT--PERRL, EOMI, mucous membranes and oropharynx mildly dry Neck--supple. No JVD. No bruits. Thyroid normal, trachea midline, no adenopathy. Heart--normal S1 and S2. No murmurs, rubs or gallops. Lungs--Reduced air entry Abdomen--normal bowel sounds and soft. Mild epigastric and left sided abdominal pain Extremities--no cyanosis or clubbing. No edema. Dermatologic--normal skin turgor, normal color, no abnormal lymph nodes, no rash. Neurologic--cranial nerves II through XII grossly intact. Rheumatologic--normal range of motion. Psychiatric--normal affect. Discharge Data Allergies Allergy/AdvReac Type Severity Reaction Status Date / Time bee venom protein (honey bee) Allergy Severe FULL BODY Verified 12/06/22 19:49 SWELLING-NO SOB Consultations 12/06/22 20:53 ED Decision to Admit Stat Hospital Course (1) Acute respiratory failure with hypoxia: secondary to acute bronchitis, likley viral Continue Solu-Medrol 40 mg IV every 8 hours. Duonebs every 4 hours while awake and every 2 hours when necessary. Guaifenesin extended release 1200 mg p.o. twice daily Pulmicort Respules 0.5 mg inhaled twice daily Azithromycin 500 mg IV daily Nasal cannula oxygen, titrate to keep pulse ox 92-94% He needs home oxygen, 2L round the clock for his acute respiratory failure with hypoxia (2) Benign essential hypertension: BP is under good control continue home meds (3) Type 2 diabetes mellitus: Blood glucose under good control will monitor in view of steroids hold metformin (4) Hypercholesterolemia: (5) Graves disease: (6) Lumbar spinal stenosis: (7) Reactive airway disease: (8) Lower extremity edema: Plan d/c home today on oxygen Total Time Total Time Spent Total Time Spent (In Minutes): 35 Discharge Plan Discharge Items Patient Disposition: Home - Self-Care Reason For Visit: ACUTE RESP FAILURE WITH HYPOXIA Discharge Diagnosis: acute respiratory failure with hypoxia Activity: Resume your previous activity Non-emergency contact: Primary Care Provider Call non-emergency contact if: you have any medication questions Follow-up/Referrals: Keagan Spencer III, CRNP [Primary Care Provider] - 12/16/22 4:00 pm Diet: Regular Addtl Attending Provider Instructions: please make appointment to follow up with your PCP Pending Studies at Discharge: No Stand-Alone Forms: [employer], Smoking Cessation Medications and DC Order Prescriptions: New doxycycline monohydrate 100 mg capsule 100 mg PO BID 5 Days Qty: 10 0RF prednisone 10 mg tablet 10 mg PO DAILY Qty: 14 0RF Continued aspirin 81 mg tablet,delayed release (DR/EC) 81 mg PO DAILY meloxicam 15 mg tablet 15 mg PO DAILY Qty: 30 5RF doxazosin 4 mg tablet 4 mg PO DAILY Qty: 90 3RF atorvastatin 10 mg tablet 10 mg PO DAILY Qty: 90 3RF cyclobenzaprine 10 mg tablet 10 mg PO TID PRN (Reason: muscle spasm) Qty: 60 1RF metformin 500 mg tablet 500 mg PO BID Rx Instructions: TAKE 1 TABLET BY MOUTH TWICE A DAY clonidine HCl 0.3 mg tablet 0.3 mg PO DAILY PRN (Reason: UNCONTROLLED HYPERTENSION) Rx Instructions: TAKE 1 TABLET BY MOUTH EVERY DAY FOR UNCONTROLLED HYPERTENSION losartan-hydrochlorothiazide 50-12.5 mg tablet 1 tab PO BID Rx Instructions: TAKE 1 TABLET BY MOUTH TWICE A DAY Discharge Orders: Discharge Order (Routine); Ordered 12/08/22 Ordered By: Court Tompkins/Other Patient Handouts: Managing Type 2 Diabetes Admission Data Admit Date/Time: 12/06/22 21:56 Attending Provider: Court Elliott Admit Provider: Jeremi Villarreal Primary Care Provider: Keagan Spencer III Other Providers: Jeremi Villarreal Coding Level of Care Code HOSP INP/OBS DISCH >30 MIN Diagnoses Acute respiratory failure with hypoxia J96.01 Benign essential hypertension I10 Type 2 diabetes mellitus E11.9 Diabetes mellitus assisted insulin use: without service rig operator use Diabetes mellitus complication status: without complication Hypercholesterolemia E78.00 Graves disease E05.00 Lumbar spinal stenosis M48.061 Reactive airway disease J45.909 Asthma complication type: with acute exacerbation Asthma severity: unspecified severity Lower extremity edema R60.0 Time Spent (min) 35
== END 2022-12-08 18:21 | disposition home or self-care (01) | DRG 189 ==
LOC: ED 17:39 → EDINP 21:56 → SUATTDRO 21:56 → 2W 23:58

== ENCOUNTER 2023-04-04 07:58 | Observation (INO) ==
--- NOTE | 2023-03-15 15:48 | PAT Medication Instructions ---
Medication Instructions Date of Service March 15, 2023 Home Medications Medication Instructions Recorded atorvastatin 10 mg tablet 10 mg PO DAILY #90 tabs 02/15/23 clonidine HCl 0.3 mg tablet 0.3 mg PO DAILY PRN UNCONTROLLED 02/15/23 HYPERTENSION #90 tabs cyclobenzaprine 10 mg tablet 10 mg PO TID PRN muscle spasm #60 02/15/23 tabs doxazosin 4 mg tablet 4 mg PO DAILY #90 tabs 02/15/23 losartan 50 mg-hydrochlorothiazide 1 tab PO BID #180 tabs 02/15/23 12.5 mg tablet metformin 500 mg tablet 500 mg PO BID #180 tabs 02/15/23 aspirin 81 mg tablet,delayed release 81 mg PO QAM atorvastatin 10 mg tablet 10 mg PO DAILY clonidine HCl 0.3 mg tablet 0.3 mg PO DAILY PRN cyclobenzaprine 10 mg tablet 10 mg PO TID PRN doxazosin 4 mg tablet 4 mg PO DAILY losartan 50 mg-hydrochlorothiazide 12.5 mg tablet 1 tab PO BID metformin 500 mg tablet 500 mg PO BID Continue as directed atorvastatin 10 mg tablet 10 mg PO DAILY doxazosin 4 mg tablet 4 mg PO DAILY clonidine HCl 0.3 mg tablet 0.3 mg PO DAILY PRN(if needed) DO NOT take the morning of surgery cyclobenzaprine 10 mg tablet 10 mg PO TID PRN losartan 50 mg-hydrochlorothiazide 12.5 mg tablet 1 tab PO BID metformin 500 mg tablet 500 mg PO BID Take morning of surgery With a small sip of water, OTHERWISE NOTHING TO EAT OR DRINK AFTER MIDNIGHT: aspirin 81 mg tablet,delayed release 81 mg PO QAM (unless directed otherwise by surgeon) Take evening before surgery cyclobenzaprine 10 mg tablet 10 mg PO TID PRN(if needed) losartan 50 mg-hydrochlorothiazide 12.5 mg tablet 1 tab PO BID metformin 500 mg tablet 500 mg PO BID Other Notes If you have any questions please call us at [phone] or [phone] or [phone] or [phone]
--- NOTE | 2023-03-20 08:41 | Anesthesiology Consultation ---
Date of Service March 20, 2023 Assessment & Plan (1) Encounter for pre-operative examination: - COVID screening: Per assessment on 03/20: No known COVID-19 positive contacts or current COVID-19 related symptoms. Travel screen negative. Patient vaccinated. At surgeon discretion if preop Covid testing being done. - Check BSG AM DOS - Outpatient joint assessment: Pt currently scheduled for inpatient pathway. If surgeon requests review for outpatient joint pathway, patient is not recommended candidate for outpatient joint program from anesthesia standpoint. - Cardiology visit (09/06/22): "Dizziness: I suspect his dizziness is not cardiac however I did suggest that we should try to record his rhythm while he is being dizzy, and preferably his blood pressure. This would require at a minimum side type of monitoring, I would suggest a 3-day Holter monitor. We could do a tilt test to determine whether he has orthostatic symptoms, is a diabetic and on blood pressure medications he could have orthostatic hypotension. Additionally a stress test might be reasonable although I was not able to obtain exertional symptoms so this could potentially be optional. At this point however he refuses all testing, I confirmed that with him several times through the basket hand braider and he does not want any testing done, insisting that he does not h ave a heart problem.. Hypertension: He does have systolic hypertension today and he has intermittently had somewhat elevated blood pressure on monitoring however it is not severe or consistent and I do not want to increase his medications given his possible orthostatic symptoms. I did not adjust his medications.. Hypercholesterolemia: He carries a diagnosis of hypercholesterolemia, the last cholesterol that I see is from July 31, 2020 where his total cholesterol was 144 and his elevated DL was 58 with an HDL of 64, this is excellent. I do not know for sure what medications he was on at the time but if he was on his current dose of atorvastatin that is certainly acceptable. It might be reasonable to repeat his cholesterol determination." - Pulmonary visit (01/09/23): "Dyspnea- Likely multifactorial in the setting of morbid obesity and generalized deconditioning with multiple orthopedic complaints and decreased physical activity. Reports having lost some weight since discharge which does seem to help his mobility. He is scheduled to be evaluated by orthopedic surgery for his hip which may help increase his ambulation.. While the dyspnea is concerning, it does not appear to be a primary pulmonary source at this time. Patient is also complaining of some dizziness with exertion. Would recommend cardiac evaluation for possible symptoms of dyspnea including echocardiogram that has not been performed at this time. Unfortunately, patient has been reluctant to have procedures performed in the past. Would highly encourage this moving forward, however.. Patient is a former smoker but has quit greater than 15 years ago and, thankfully, is without symptoms of obstructive physiology. Handheld spirometry not suggestive of obstructive pattern either. No need for PFTs at this time. Patient does not meet criteria for routine lung cancer screening studies given the timeframe of quitting.. Hypoxia.. Resolved at this point.. No need for home O2 at this time.. Successfully performed 6 minute walk without real issue.. he likely is experiencing symptoms related to sleep apnea and would work polysomnography. Unfortunately, the patient refuses evaluation or sleep study at this time. Would defer this to the primary care provider if the patient is willing to have this performed moving forward." - PCP visit (02/15/23): "Graves disease.. Significantly overdue for blood work and could be directly impacting his blood pressure control. Strongly encouraged him to get his ordered labs completed.. Overdue for repeat lipids. Encouraged him to complete his blood work. Continue current dosage of statin pending results of labs.. Type 2 diabetes mellitus.. Overdue for labs. Continue current dose of metformin pending results of his blood work.. Uncontrolled hypertension.. Poorly controlled blood pressure at this time. Questionable impact of Graves' disease of consideration. Significantly overdue for blood work. He is encouraged to complete his labs. No medication changes pending results of his blood work." PCP-ordered labs done 02/21/23 (TSH WNL, A1C 6.4%)* - Cigarette Book Maker needed: Guyanese. Patient declined behavioral intervention specialist at PAT visit ( aided with obtaining history). OR made aware Guyanese behavioral intervention specialist needed DOS. - Preop cardiology evaluation arranged ([facility], appt [place]/[facility])- Awaiting visit note. Chart Review Chart Review: Patient seen in Pre Admission Testing Teaching & Discussion Pre-Anesthesia Teaching/Discussion Notes: Instructed NPO after midnight before surgery,except medications with 15 cc of water. Medication instructions provided according to the PAT guidelines. History Surgery Operation Date: 04/04/23 07:00 Proposed Procedures p Left Total Hip Arthroplasty - Manny Lockhart MD Height/Weight Height: 5 ft 4 in Weight: 124.5 kg Allergies Allergy/AdvReac Type Severity Reaction Status Date / Time bee venom protein (honey bee) Allergy Severe Full body Verified 03/16/23 14:05 swelling Medications Home Medications Medication Instructions Recorded Confirmed Last Taken aspirin 81 mg tablet,delayed 81 mg PO QAM 03/26/21 03/15/23 12/06/22 release atorvastatin 10 mg tablet 10 mg PO DAILY #90 tabs 02/15/23 03/15/23 Unknown clonidine HCl 0.3 mg tablet 0.3 mg PO DAILY PRN UNCONTROLLED 02/15/23 03/15/23 Unknown HYPERTENSION #90 tabs cyclobenzaprine 10 mg tablet 10 mg PO TID PRN muscle spasm #60 02/15/23 03/15/23 Unknown tabs doxazosin 4 mg tablet 4 mg PO DAILY #90 tabs 02/15/23 03/15/23 Unknown losartan 50 mg-hydrochlorothiazide 1 tab PO BID #180 tabs 02/15/23 03/15/23 Unknown 12.5 mg tablet metformin 500 mg tablet 500 mg PO BID #180 tabs 02/15/23 03/15/23 Unknown Past Medical History Medical History Benign essential hypertension Hx of Graves' disease Hx of hemorrhoids Hypercholesterolemia Lumbar spinal stenosis Morbid obesity Prostate cancer s/p prostatectomy Reactive airway disease Follows with Dr. Gianni La No sleep study Type 2 diabetes mellitus Exercise / Class Metabolic Activity II 4-5 Yardwork/Stairs/Walk up hill (one FS (no CP, no SOB)) Past Family History Family History Father Chronic bronchitis Mother Hypertension Stroke syndrome Denies family history of Ovarian cancer Prostate cancer Myocardial infarction Breast cancer Colorectal cancer Past Surgical History Surgical History History of tonsillectomy and adenoidectomy S/P appendectomy S/P prostatectomy S/P shoulder surgery Status post carpal tunnel release Past Anesthesia History No Hx of Anesthesia Complications and No Family Hx of Anesthesia Complications History of PONV No Hx of PONV Social History Smoking Status: Former smoker tobacco type: cigarettes Smoking cigarettes per day: Quit 10-15 years ago Do You Dip or Chew Tobacco: No Hx Alcohol Use: No Hx Substance Use: No substance use type: does not use Review of Systems Patient denies chest pain, shortness of breath, dyspnea on exertion, fever, chills, cough, wheezing, palpitations. Physical Exam Vital Signs VITALS BP 116/75 P 66 TEMP 98.3 SP02 94%RA RESP 16 PHYSICAL Full cervical extension range of motion. Full TMJ range of motion. TMD 3.5 finger breaths Mallampati Score 4 (small oral opening) Dentition: several missing teeth Lungs: clear throughout to auscultation Cardiac: regular rate and rhythm, no murmurs noted Spine: normal Carotid arteries: negative bruit Extremities: no LE edema Lab Results Anesthesia Preop Results Results Anesthesia Widget: WBC 6.90 K/ul (4.8-10.8) 03/20/23 Hgb 15.1 g/dl (14.0-18.0) 03/20/23 Hct 44.6 % (42.0-52.0) 03/20/23 Plt 260 K/uL (130-400) 03/20/23 Na 137 mmol/L (136-145) 02/21/23 K 3.5 mmol/L (3.5-5.1) 02/21/23 Cl 102 mmol/L (98-107) 02/21/23 CO2 28 mmol/L (21-32) 02/21/23 BUN 19 mg/dl (6-23) 02/21/23 Creat 0.78 mg/dl (0.6-1.4) 02/21/23 Glucose Level 160 mg/dl (70-99(Fasting)) H 02/21/23 PT 10.8 Seconds (9.0-12.0) 03/20/23 PTT 27.8 Seconds (21.0-31.0) 03/20/23 INR 1.0 (0.9-1.1) 03/20/23 TSH 0.547 uIu/ml (0.300-4.500) 02/21/23 HA1c 6.4 % (4.5-5.6) H 02/21/23 Blood Type O Negative 03/20/23 Antibody Screen NEGATIVE 03/20/23 COVID-19 Risk Screen Screening Information COVID-19 Screen Date: 03/22/23 Exposure 21 Days Family/Household +COVID Last 21 Days: No Exposure 10 Days Any COVID Exposure Last 10 Days: No Symptoms Last 10 Days Experienced COVID Sx Last 10 Days: No + COVID 0-90 Days COVID + in Last 0-90 Days: No
[~2023-04-04 07:58] MED LIST changes: +ACETAMINOPHEN 500 MG TAB PO SCH; -ATOR10TA88 PO; +BUPIVACAINE 0.5 % 5 MG/1 ML PF 10ML VIAL ONE; +BUPIVACAINE LIPOSOME/PF 266 MG, BUPIVACAINE/EPINEPHRINE 50 ML, SODIUM CHLORIDE 0.9% PF ... INFIL SCH; -CIPR1TAB10 PO; -CLON0.2T PO; +CeleBREX 200 MG CAP PO SCH; -DILT120C68 PO; +FAMOTIDINE 20 MG TAB PO SCH; -LOSA50TA54 PO; +LR 500ML BOLUS, THEN 15ML/HR IV SCH; +LR 60ML/HR IV SCH; -METH10TA6 PO; +METOCLOPRAMIDE HCL 10 MG TABLET PO SCH; -OXYC7.5T65 PO; +Scopolamine 1 MG TDSY TD SCH; +TRANEXAMIC ACID 1,000 MG **IV Pre-op IV SCH
--- NOTE | 2023-04-04 08:48 | History & Physical Bridge Note ---
Date of Service April 04, 2023 History & Physical Bridge Note I have examined the patient, reviewed the History & Physical and in the interval since the performance of the History & Physical I have noted the following changes of clinical significance: no changes noted
[2023-04-04] MEDS ORDERED: MIDAZOLAM HCL 1 MG/ML 2ML VIAL ONE ×2 (10:18→10:19)
[2023-04-04] MEDS ORDERED: PROPOFOL IV EMULSION 10 MG/ML 20 ML VIAL IV ONE (10:18)
[2023-04-04] MEDS ORDERED: BUPIVACAINE/EPINEPHRINE 0.5% MPF 1:200,000 30 ML VIAL ONE (11:06)
[2023-04-04] MEDS ORDERED: fentaNYL citrate PF 100 MCG/2 ML VIAL ONE ×3 (11:38→13:33)
[2023-04-04] MEDS ORDERED: ONDANSETRON INJ 2 MG/ML 2 ML VIAL ONE (11:50)
[2023-04-04] MEDS ORDERED: HYDROmorphone INJ 2 MG/ML SYR/VIAL ONE (11:50)
[2023-04-04] MEDS ORDERED: DEXAMETHASONE SOD INJ 4 MG/ML VIAL ONE (11:50)
[2023-04-04] MEDS ORDERED: SUCCINYLCHOLINE CHLORIDE 20 MG/ML 10 ML VIAL IV ONE (12:02)
--- NOTE | 2023-04-04 13:13 | Operative Report ---
PG Post Operative Report Pre & Post Diagnosis Operation Date: 04/04/23 10:20 Pre-Op Diagnosis: Left Hip Degenerative Joint Disease Post-Op Diagnosis: Left Hip Degenerative Joint Disease I identified the patient and participated in the time-out.: Yes Procedure Operation Date: 04/04/23 10:20 Actual Procedures p Left Total Hip Arthroplasty, Uncemented(Left) - Manny Lockhart MD Surgeon Manny Lockhart MD Mail Carrier Maxim Mcmillan PA-C Estimated Blood Loss 200 Findings Consistent with Post-Op Diagnosis Operative findings were advanced left hip DJD. Grade 4 [id number] disease of the femoral head and acetabulum. Small anterior acetabular osteophytes. Moderate-sized joint effusion. Specimens Left femoral head sent for pathology Anesthesia Type General Complications none Disposition Accompanied Patient To Recovery: No Indications Patient is 67-year-old gentleman said a several year history of increasing left hip pain discomfort is gradually gotten worse over the past year. Got to the point where he had use a cane to get around. X-rays show progressive hip arthritis. He elected proceed with surgical treatment. Description of Procedure Operative implants consist of: 1. Biomet G7 size 56 mm acetabular shell. 2. Covington hole eliminator. 3. 6.5 cancellous acetabular screws 1 at 35 mm in length and 1 of 25 mm length. 4. Highly cross-linked polyethylene liner with a 56 mm outer diameter and 36 mm inner diameter. 5. DePuy Corail size 12 KLA femoral stem. 6. +5/36 mm ceramic articular ball. The patient was taken to the operating room, identified, and placed on the operating table supine position protectors were properly padded. IV antibiotics tried by anesthesia team. A general anesthetic was implemented. They attempted a spinal anesthetic in the holding area but were unsuccessful. The patient was then placed in the right lateral decubitus position. An axillary roll was placed. A Stulberg hip positioner was used for positioning. The left hip and leg were then prepped and draped in the usual sterile fashion. A posterolateral approach to the left hip was then performed through a curvilinear incision centered over the greater trochanter. Sharp dissection was carried through subcutaneous tissue down below the IT band gluteal fascia the IT band gluteal fascia incised longitudinally in line with skin incision. The underlying greater bursa was excised. The piriformis and external rotators were then taken off the posterior aspect the hip joint along with the posterior capsule as a single layer. Great care was taken throughout the procedure protect the sciatic nerve at all times. Hip was internally rotated and dislocated. A femoral neck osteotomy cut was made with Final Cut about 10 mm above the lesser trochanter. Femoral head was removed and sent for pathology. The femur was retracted anteriorly. Attention drawn the acetabulum. The acetabular labrum was excised. The pulmonary fat was excised. Sequential reaming of the acetabulum was then performed again with a size 47 progressing up to 55. I did ream a little bit with a 56 reamer and then placed a 56 mm Biomet G7 acetabular shell in about 40 degrees lateral opening and 20 degrees of anteversion. It was fixed with two 6.5 cancellous acetabular screws. Some small anterior osteophytes were removed with from the acetabulum. A trial liner was placed. Attention drawn the femur. The proximal femur was then entered with a cookie cutter followed by canal finder. I then broached beginning size 8 and progressing up to a 12. Got excellent fit of the 12. Calcar reamer was used smoothing off the calcar. Trialed the hip and the +5 articular ball seem to recreate soft tissue tension appropriately, leg lengths equal and was fully stable in full extension and external rotation and flexion to 90 degrees internal Tatian over [address] We elect to place these implants. All trial implants were removed. An apex eliminator was placed. Highly cross- linked polyethylene liner was placed. A size 12 KLA femoral stem was impacted in position. A +5/36 mm ceramic articular ball was placed. Hip was located and once again found to be stable. Attention drawn toward closing. The wound was irrigated coconuts pulsatile lavage solution. I did inject locally with 60 cc of half percent Marcaine with epinephrine. The posterior capsule and external rotators were then repaired through drill holes in the posterior trochanter as a single layer with #2 Tycron suture. The IT band gluteal fascia then closed with #1 PDS suture in running fashion for subcutaneous tissues then closed with 2 layers with a deep layer #1 Vicryl suture in the subcutaneous tissues with 2-0 Dexon suture in a buried interrupted fashion. Skin was closed with skin avelino. Leg was then cleaned and dried and sterile dressed with Xeroform, 4 x 4's, sterile ABD pad and foam tape was applied. Patient was then brought out of general incision transferred to the recovery room in stable condition. Patient tolerated the procedure well and there were no complications. Maxim Mcmillan, my physician melter assistant, was present for the entire procedure. His assistance was essential and required for appropriate patient positioning, prepping and draping, surgical exposure, performing the technical details of the operation, placement the implants, closure of the wound, and placement of the sterile bandage. I attest to the content of the Intraoperative Record and any orders documented therein. Any exceptions are noted below.
[2023-04-04] MEDS ORDERED: FLUMAZENIL 0.1 MG/1 ML 10 ML VIAL IV PRN (13:21)
[2023-04-04] MEDS ORDERED: ATROPINE SULFATE 0.1 MG/ML 10ML SYR IV PRN (13:21)
[2023-04-04] MEDS ORDERED: ePHEDrine sulfate 50 MG/ML AMP IV PRN (13:21)
[2023-04-04] MEDS ORDERED: fentaNYL citrate PF 100 MCG/2 ML VIAL IV PRN (13:21)
[2023-04-04] MEDS ORDERED: PROMETHAZINE HCL 12.5 MG in SODIUM CHLORIDE 0.9% 50 ML IV PRN (13:21)
[2023-04-04] MEDS ORDERED: LABETALOL HCL IV 5 MG/ML 20ML IV PRN (13:21)
[2023-04-04] MEDS ORDERED: ONDANSETRON INJ 2 MG/ML 2 ML VIAL IV PRN ×2 (13:21→14:36)
[2023-04-04] MEDS ORDERED: NALOXONE HCL 0.4 MG/1 ML VIAL/CARP IV PRN ×2 (13:21→14:36)
[2023-04-04] MEDS ORDERED: HYDROmorphone INJ 1 MG/ML SYRINGE IV PRN (13:21)
--- NOTE | 2023-04-04 13:47 | XRay Report ---
XR hip 1V LT w pelvis CLINICAL HISTORY: Postoperative evaluation. COMPARISON: Left hip radiographs March 13, 2023. FINDINGS: Alignment of the total left hip arthroplasty is anatomic. No periprosthetic fracture is pr esent. There are acetabular screws and skin avelino. No unexpected radiopaque foreign bodies are note d. IMPRESSION: Expected findings following total left hip arthroplasty. ACT 112: Negative or not required by law. Electronically signed by: George Adams M.D. 04/04/2023 1:44 PM
[2023-04-04] MEDS ORDERED: DEXTROSE 50% 50 ML SYRINGE IV PRN (14:36)
[2023-04-04] MEDS ORDERED: HYDROmorphone INJ 0.5 MG/0.5 ML SYR IV PRN (14:36)
[2023-04-04] MEDS ORDERED: ALUMINUM/MAGNESIUM SUSP 30 ML UDC PO PRN (14:36)
[2023-04-04] MEDS ORDERED: CYCLOBENZAPRINE HCL 10 MG TAB PO PRN (14:36)
[2023-04-04] MEDS ORDERED: GLUCOSE 10 TAB/TUBE PO PRN (14:36)
[2023-04-04] MEDS ORDERED: METOCLOPRAMIDE HCL INJ 5 MG/ML 2 ML VIAL IV PRN (14:36)
[2023-04-04] MEDS ORDERED: MAGNESIUM HYDROXIDE SUSP 30 ML UDC PO PRN (14:36)
[2023-04-04] MEDS ORDERED: CARBOHYDRATES FOR HYPOGLYCEMIA PO PRN (14:36)
[2023-04-04] MEDS ORDERED: PHARMACY GLYCEMIC MGMT CONSULT PRN (14:36)
[2023-04-04] MEDS ORDERED: bisacodyL 10 MG SUPP PR PRN (14:36)
[2023-04-04] MEDS ORDERED: traMADol HCL 50 MG TABLET PO PRN (14:36)
[2023-04-04] MEDS ORDERED: GLUCAGON FOR INJ 1 MG VIAL SQ PRN (14:36)
[2023-04-04] MEDS ORDERED: ACETAMINOPHEN 500 MG TAB PO SCH (14:36)
[2023-04-04] MEDS ORDERED: cloNIDine HCL 0.3 MG TAB PO PRN (14:36)
[2023-04-04] MEDS ORDERED: GLUCOSE 40% GEL 15 GM TUBE PO PRN (14:36)
--- NOTE | 2023-04-04 14:46 | Anesthesiology Progress Note ---
Date of Service April 04, 2023 Anesthesia Post Procedure Vital Signs Vital Signs: Temp Pulse Pulse Resp BP Pulse Ox O2 Del Method 04/04/23 14:30 36.5 C 72 16 130/75 96 Nasal Cannula 04/04/23 14:20 77 17 134/81 96 Nasal Cannula 04/04/23 14:10 79 17 132/67 94 Nasal Cannula 04/04/23 14:00 36.6 C 82 15 135/67 96 Nasal Cannula 04/04/23 13:50 80 12 133/93 94 Nasal Cannula 04/04/23 13:40 86 21 166/78 H 93 Oxymask 04/04/23 13:30 87 20 175/86 H 93 Oxymask 04/04/23 13:20 89 18 175/86 H 94 Oxymask 04/04/23 13:11 36.3 C L 90 16 142/88 H 96 Oxymask 04/04/23 08:39 36.8 C 71 20 105/53 L 93 Room Air O2 Flow Rate 04/04/23 14:30 3 04/04/23 14:20 3 04/04/23 14:10 3 04/04/23 14:00 3 04/04/23 13:50 3 04/04/23 13:40 4 04/04/23 13:30 4 04/04/23 13:20 4 04/04/23 13:11 6 04/04/23 08:39 Pain Intensity Left Hip: Pain Intensity: 3 Transfer of Care Handoff Completed per policy Notes Mental Status: alert / awake / arousable Patient Amnestic to Procedure: Yes Nausea / Vomiting: adequately controlled Pain: adequately controlled Airway Patency, RR, SpO2: stable & adequate BP & HR: stable & adequate Hydration State: stable & adequate Anesthetic Complications: no major complications apparent
--- NOTE | 2023-04-04 14:58 | Pharmacy Report ---
Pharmacy Glycemic Short Note 2 - Date of Service April 04, 2023 - Glycemic Short BSG Results (Last 24 hours): 04/04/23 04/04/23 09:14 13:11 POC Glucose 137 H 174 H OUTPATIENT ANTIDIABETIC REGIMEN: * metformin 500mg PO BID HbA1C: __ ASSESSMENT: * Patient is a 67 year old male s/p left total hip replacement. History of DM2 on metformin only at home. Pharmacy consulted to assist with glycemic management. * Received 8mg of IV dexamethasone intra-op and ordered 10mg tomorrow. Pre-op BSG 137mg/dL and 174mg/dL post-op. Ordered a diet. * Lantus 10 units X 1 given rising BSG and steroid administration. Novolog mod erate stress scale ACHS titrated to BSGs. PLAN FOR INPATIENT GLYCEMIC CONTROL: * Hold outpatient oral diabetes medications * Basal insulin * Lantus 10 units SQ X 1 * Bolus insulin * NovoLog per scale ACHS or Q6hrs while NPO * Goal Range: Low 110 mg/dL - High 140 mg/dL * Correction Factor: 21 mg/dL/unit * Nutritional / Prandial insulin per carb ratio of 1 unit per 7 grams CHO consumed
[2023-04-04] MEDS: SODIUM CHLORIDE 0.9% 1000ML 1,000 ML IV SCH (14:59)
[2023-04-04] MEDS ORDERED: LANTUS PER UNIT CHARGE SC ONE (15:00)
[2023-04-04] MEDS: Scopolamine CHECK PATCH PLACEMENT SCH ×2 (15:11→23:31)
[2023-04-04] MEDS: KETOROLAC 30 MG/ML VIAL IV SCH ×2 (15:11→21:23)
[2023-04-04] MEDS: ACETAMINOPHEN 500 MG TAB PO SCH ×2 (15:14→23:30)
--- NOTE | 2023-04-04 17:44 | Progress Notes ---
DATE OF SERVICE: 04/04/2023 SUBJECTIVE: A 67-year-old gentleman, he is postop from a left total hip replacement. He is doing we ll. A little difficult to communicate as he is by himself only speaks Bhutanese. He is sitting up in bed, eating dinner and looks comfortable. OBJECTIVE: LUNGS: Clear to auscultation. HEART: Regular rate and rhythm. ABDOMEN: Soft, nontender, nondistended. EXTREMITIES: Grossly neurovascularly intact except as follows: Examination of the left hip and leg reveals the dressing to be clean, dry and intact. He can dorsiflex and plantarflex his foot appropri ately. He is neurologically intact. X-RAYS: X-rays of the left hip from recovery room are reviewed. It shows left uncemented total hip replacement. Components looked to be in good position. No signs of problems. ASSESSMENT: A 67-year-old gentleman postoperative from a left hip replacement, doing well. Pain is controlled. Hip is located. He is neurologically intact. PLAN: 1. DVT prophylaxis includes thigh-high TEDs, SCDs, and aspirin twice a day. 2. PT/OT, weightbear as tolerated. Left total hip protocol. 3. Pain control, doing okay with current pain regimen. 4. IV antibiotics x24 hours. 5. Disposition: Plan to discharge him home with some home health. We will see how he does in [facility] tomorrow. Job ID: [id number]
[2023-04-04] MEDS: INSULIN ASPART PER UNIT CHARGE SC SCH ×2 (18:05→21:21)
[2023-04-04] MEDS: ASCORBIC ACID 500 MG TAB PO SCH (18:06)
[2023-04-04] MEDS: ceFAZolin 2000MG 2,000 MG/15 ML SYR IV SCH (18:06)
[2023-04-04] MEDS ORDERED: TRANEXAMIC ACID / 0.7% NACL 1,000 MG/100 ML BAG IV SCH (19:15)
[2023-04-04] MEDS: LOSARTAN/HCTZ 50/12.5MG TAB PO SCH (20:28)
[2023-04-04] MEDS ORDERED: SENNA 8.6 MG TAB PO SCH ×2 (21:00)
[2023-04-04] MEDS: DOCUSATE SODIUM 100 MG CAP PO SCH (21:22)
[2023-04-04] MEDS: ASPIRIN 81 MG ECTAB PO SCH (21:22)
[2023-04-05] MEDS: SODIUM CHLORIDE 0.9% 1000ML 1,000 ML IV SCH (00:59)
[2023-04-05] MEDS ORDERED: INSULIN ASPART PER UNIT CHARGE SC SCH (02:00)
[2023-04-05] MEDS: ceFAZolin 2000MG 2,000 MG/15 ML SYR IV SCH (04:08)
[2023-04-05] MEDS: KETOROLAC 30 MG/ML VIAL IV SCH ×3 (04:09→16:59)
[2023-04-05] MEDS: ACETAMINOPHEN 500 MG TAB PO SCH ×2 (05:57→12:57)
[2023-04-05 07:50] LABS: Basophils # (auto) 0.01 K/uL (0-0.2); Basophils % (auto) 0.1 %; Hematocrit (blood only) 37.6 % (42.0-52.0); Hemoglobin 12.8 g/dl (14.0-18.0); Immature Granulocytes # (auto) 0.07 K/uL (0.01-0.20); Immature Granulocytes % (auto) 0.5 %; Lymphocytes # (auto) 1.35 K/uL (1.2-3.4); Lymphocytes % (auto) 10.2 %; Mean Corpuscular Hemoglobin 29.6 pg (25.0-34.0); Mean Corpuscular Volume 86.8 fL (80.0-100.0); Mean Platelet Volume 9.6 fL (9.4-12.4); Monocytes # (auto) 1.25 K/uL (0.11-0.59); Monocytes % (auto) 9.5 %; Neutrophils # (auto) 10.52 K/uL (1.40-6.50); Neutrophils % (auto) 79.7 %; Platelet Count 218 K/uL (130-400); RDW Coefficient of Variation 12.9 % (11.5-14.5); RDW Standard Deviation 40.9 fL (36.4-46.3); Red Blood Count 4.33 M/uL (4.70-6.10)
[2023-04-05] MEDS: Scopolamine CHECK PATCH PLACEMENT SCH ×2 (07:57→16:59)
[2023-04-05] MEDS: ASPIRIN 81 MG ECTAB PO SCH (07:58)
[2023-04-05] MEDS: ASCORBIC ACID 500 MG TAB PO SCH ×2 (07:58→16:59)
[2023-04-05] MEDS: LOSARTAN/HCTZ 50/12.5MG TAB PO SCH (07:59)
[2023-04-05] MEDS: DOCUSATE SODIUM 100 MG CAP PO SCH (07:59)
[2023-04-05] MEDS ORDERED: dexAMETHasone 10 MG in SYRINGE 0 ML IV SCH (08:00)
[2023-04-05 08:10] LABS: Calcium 8.4 mg/dl (8.6-10.3); Estimated Average Glucose 154 mg/dl; Potassium 3.7 mmol/L (3.5-5.1)
[2023-04-05 08:16] LABS: Creatinine Clr Calc Pharmacy 127.9 ml/min; Est GFR (African American) 115.5 ml/min; Est GFR (Non-African American) 99.6 ml/min
[2023-04-05] MEDS ORDERED: TAMSULOSIN HCL 0.4 MG CAP PO SCH (09:00)
[2023-04-05] MEDS ORDERED: LANTUS PER UNIT CHARGE SC ONE (09:00)
[2023-04-05] MEDS ORDERED: ATORVASTATIN 10 MG TAB PO SCH (09:00)
[2023-04-05] MEDS ORDERED: MULTIVITAMIN TAB PO SCH (09:00)
[2023-04-05] MEDS ORDERED: DOXAZosin MESYLATE 4 MG TAB PO SCH (09:00)
[2023-04-05] MEDS: INSULIN ASPART PER UNIT CHARGE SC SCH ×3 (09:25→17:47)
--- NOTE | 2023-04-05 11:00 | Pharmacy Report ---
Pharmacy Glycemic Short Note 2 - Date of Service April 05, 2023 - Glycemic Short BSG Results (Last 24 hours): 04/04/23 04/04/23 04/04/23 13:11 15:04 17:06 Glucose POC Glucose 174 H 165 H 149 H 04/04/23 04/05/23 04/05/23 20:16 01:46 07:18 Glucose 135 H POC Glucose 178 H 153 H 04/05/23 07:43 Glucose POC Glucose 134 H OUTPATIENT ANTIDIABETIC REGIMEN: * metformin 500mg PO BID HbA1C: 7% 04/05/23 ASSESSMENT: 04/05 * Blood sugars well controlled, receiving Dexamethasone 10 mg IV x1 today - give Lantus to cover and tighten CF/CR slightly for steroid effects. 04/04 * Patient is a 67 year old male s/p left total hip replacement. History of DM2 on metformin only at home. Pharmacy consulted to assist with glycemic management. * Received 8mg of IV dexamethasone intra-op and ordered 10mg tomorrow. Pre-op BSG 137mg/dL and 174mg/dL post-op. Ordered a diet. * Lantus 10 units X 1 given rising BSG and steroid administration. Novolog moderate stress scale ACHS titrated to BSGs. PLAN FOR INPATIENT GLYCEMIC CONTROL: * Hold outpatient oral diabetes medications * Basal insulin * Lantus 15units SQ X 1 with dexamethasone * Bolus insulin * NovoLog per scale ACHS or Q6hrs while NPO * Goal Range: Low 110 mg/dL - High 140 mg/dL * Correction Factor: 20 mg/dL/unit * Nutritional / Prandial insulin per carb ratio of 1 unit per 6 grams CHO consumed
--- NOTE | 2023-04-05 13:35 | Progress Notes ---
DATE OF SERVICE: 04/05/2023. SUBJECTIVE: A 67-year-old gentleman, postoperative day 1 from a left hip replacement. He is doing w ell. He does not seem to be having much pain. He is getting around his room in pretty carefully and very safely. It is difficult to answer questions as he is in his room by himself and he speaks elryo le to no Serbian. I did attempt to call his on the phone, but was unable to reach her and left a voicemail. OBJECTIVE: VITAL SIGNS: Temperature 36.6. Vital signs are stable. PHYSICAL EXAMINATION: GENERAL: Shows a pleasant, elderly male. He is walking around the room with a cane without any diff iculty. EXTREMITIES: His dressing is clean, dry, and intact. Leg lengths are equal. Hip is located. He is neurologically intact. LABORATORY DATA: Hemoglobin 12.8. Hematocrit 37.6. Electrolytes are stable. ASSESSMENT: A 67-year-old gentleman, postoperative day 1 from a left hip replacement, doing well. P ain seems to be controlled. He is getting around safely. He does not look like he [facility]. PLAN: 1. DVT prophylaxis to include thigh-high TEDs, SCDs, and aspirin twice a day. 2. PT/OT, weightbear as tolerated. Left total hip protocol. 3. Pain control, doing okay with current pain regimen. 4. Disposition: Plan to discharge to home with some home health likely later today. We are trying to get in touch with his to discuss these issues. Job ID: [id number]
--- NOTE | 2023-04-10 07:46 | Discharge Summary ---
Date of Service April 10, 2023 Discharge Data Procedures Performed Operation Date: 04/04/23 10:20 Actual Procedures p Left Total Hip Arthroplasty, Uncemented(Left) - Manny Lockhart MD Hospital Course (1) S/P total left hip arthroplasty: This is a 67 year old patient admitted on 04/04/23 and underwent total hip arthroplasty. He tolerated the procedure well and there were no complications. Transferred to the PACU post op and later to the orthopedic floor for further care. He was given ancef for antibiotic prophylaxis. He was also given AUBRIE stockings, SCDs, and aspirin for DVT prophylaxis. Hemoglobin, hematocrit, and vital signs were monitored during his hospital stay and remained stable. Did not require any blood transfusions. There were no complications during his hospital stay. By post op day #1 the patient was tolerating a diabetic diet, pain was reasonably controlled with oral pain medicine, and he was participating in physical therapy. On post op day #1 the patient was discharged home and set up with home health care. He was given printed discharge instructions including prescriptions for extra strength tylenol, aspirin, cefadroxil, ketorolac, zofran, flomax, senokot, and tramadol. Continue hip precautions. Continue physical therapy, weight bearing as tolerated. Continue AUBRIE stockings. Follow up approximately 2 weeks post op or sooner if there are problems or concerns. Coding Level of Care Code None Diagnoses S/P total left hip arthroplasty Z96.642
== END 2023-04-05 18:08 | disposition home health service (06) ==
LOC: ASU 07:58 → 3E 07:58
DX: Z79.82 Long term (current) use of aspirin; G89.29 Other chronic pain; M16.12 Unilateral primary osteoarthritis, left hip; Z79.899 Other long term (current) drug therapy; Z87.891 Personal history of nicotine dependence; M65.9 Synovitis and tenosynovitis, unspecified; Z79.84 Long term (current) use of oral hypoglycemic drugs; Z91.030 Bee allergy status; E66.9 Obesity, unspecified

== ENCOUNTER 2024-11-11 08:55 | Inpatient (IN) ==
--- NOTE | 2024-10-21 09:24 | PAT Medication Instructions ---
Medication Instructions Date of Service October 21, 2024 Home Medications Medication Instructions Recorded atorvastatin 10 mg tablet 10 mg PO DAILY #90 tabs 02/20/24 betamethasone dipropionate 0.05 % 1 applic topical DAILY PRN rash 02/29/24 topical cream #45 grams losartan 50 mg-hydrochlorothiazide 1 tab PO BID #180 tabs 03/04/24 12.5 mg tablet metformin 500 mg tablet 500 mg PO BID #180 tabs 05/08/24 doxazosin 4 mg tablet 4 mg PO DAILY #90 tabs 05/10/24 clonidine HCl 0.3 mg tablet 0.3 mg PO Q12H #180 tabs 09/02/24 atorvastatin 10 mg tablet 10 mg PO DAILY betamethasone dipropionate 0.05 % topical cream 1 applic topical DAILY PRN rash losartan 50 mg-hydrochlorothiazide 12.5 mg tablet 1 tab PO BID metformin 500 mg tablet 500 mg PO BID doxazosin 4 mg tablet 4 mg PO DAILY clonidine HCl 0.3 mg tablet 0.3 mg PO Q12H aspirin 325 mg capsule 325 mg PO DAILY PRN Pain ASK your prescriber and surgeon aspirin 325 mg capsule 325 mg PO DAILY PRN Pain STOP taking 24 hours before surgery betamethasone dipropionate 0.05 % topical cream 1 applic topical DAILY PRN rash DO NOT take the morning of surgery losartan 50 mg-hydrochlorothiazide 12.5 mg tablet 1 tab PO BID metformin 500 mg tablet 500 mg PO BID Take morning of surgery With a small sip of water, OTHERWISE NOTHING TO EAT OR DRINK AFTER MIDNIGHT: atorvastatin 10 mg tablet 10 mg PO DAILY doxazosin 4 mg tablet 4 mg PO DAILY clonidine HCl 0.3 mg tablet 0.3 mg PO Q12H Take evening before surgery losartan 50 mg-hydrochlorothiazide 12.5 mg tablet 1 tab PO BID metformin 500 mg tablet 500 mg PO BID clonidine HCl 0.3 mg tablet 0.3 mg PO Q12H Other Notes If you have any questions please call us at [phone] or [phone] or [phone] or [phone]
--- NOTE | 2024-10-22 13:51 | Anesthesiology Consultation ---
Date of Service October 22, 2024 Assessment & Plan (1) Encounter for pre-operative examination: Chart Review Chart Review: Acceptable Risk for Surgery and Patient seen in Pre Admission Testing First language is Martiniquais (Did offer professor of kinesiology at [facility] appt but patient declined- patient's translated per patient request) - Check BSG AM DOS Per [facility] appt on 10/22/24, no recent illness/disease exposures, illness related symptoms, or recent illness/disease positive tests. Will leave to surgeon's discretion if preop Covid testing needed Teaching & Discussion Pre-Anesthesia Teaching/Discussion Notes: Instructed NPO after midnight before surgery,except medications with 15 cc of water. Medication instructions provided according to the [facility] guidelines. History Surgery Operation Date: 11/11/24 07:30 Proposed Procedures p L3-L4, L4-L5 Laminectomy and Decompression, Fusion with Open Posterior Intrumentation Nonsegmented - Brennan oD MD Height/Weight Height: 5 ft 7 in Weight: 124.6 kg Allergies Allergy/AdvReac Type Severity Reaction Status Date / Time bee venom protein (honey bee) Allergy Severe Full body Verified 10/21/24 08:31 swelling Medications Home Medications Medication Instructions Recorded Confirmed Last Taken atorvastatin 10 mg tablet 10 mg PO DAILY #90 tabs 02/20/24 10/21/24 Unknown betamethasone dipropionate 0.05 % 1 applic topical DAILY PRN rash 02/29/24 10/21/24 Unknown topical cream #45 grams losartan 50 mg-hydrochlorothiazide 1 tab PO BID #180 tabs 03/04/24 10/21/24 Unknown 12.5 mg tablet metformin 500 mg tablet 500 mg PO BID #180 tabs 05/08/24 10/21/24 Unknown doxazosin 4 mg tablet 4 mg PO DAILY #90 tabs 05/10/24 10/21/24 Unknown clonidine HCl 0.3 mg tablet 0.3 mg PO Q12H #180 tabs 09/02/24 10/21/24 Unknown aspirin 325 mg capsule 325 mg PO DAILY PRN Pain 10/21/24 10/21/24 Unknown Past Medical History Medical History Benign essential hypertension Chronic low back pain Degenerative spondylolisthesis History of prostate cancer (2015) s/p prostatectomy, no chemo or radiation Hx of basal cell carcinoma s/p excision Hx of Graves' disease no longer takes medications TSH WNL on 10/22/24 Hypercholesteremia Lumbar stenosis with neurogenic claudication Reactive airway disease no longer follows with Dr. Archer (pul) Snores No sleep study Type 2 diabetes mellitus Exercise / Class Metabolic Activity II 4-5 Yardwork/Stairs/Walk up hill (one flight of stairs - no chest pain, mild SOB- due to back pain and deconditioning ) Past Family History Family History Father Chronic bronchitis Mother Hypertension Stroke syndrome Denies family history of Ovarian cancer Prostate cancer Myocardial infarction Breast cancer Colorectal cancer Past Surgical History Surgical History History of basal cell carcinoma (BCC) excision History of tonsillectomy and adenoidectomy S/P appendectomy S/P prostatectomy (2015) prostate ca S/P shoulder surgery S/P total left hip arthroplasty (03/25/23) Status post carpal tunnel release right Past Anesthesia History No Hx of Anesthesia Complications and No Family Hx of Anesthesia Complications History of PONV No Hx of PONV and No Hx of Motion Sickness Social History Smoking Status: Former smoker tobacco type: cigarettes Do You Dip or Chew Tobacco: No Smoking End Date: quit 2007 Hx Alcohol Use: No Hx Substance Use: No substance use type: does not use Review of Systems Patient denies chest pain, shortness of breath at rest, reflux, cough, wheezing, palpitations. No hx of seizures, stroke, [place]. No hx of blood clots or blood transfusions Physical Exam Vital Signs VITALS BP 119/72 P 58 TEMP 98.6 SP02 93% RESP 16 Constitutional no acute distress ENMT Mouth: + small oral opening; no TMJ clicking Thyromental Distance: > or= 3.5 Finger Breadths (3.5) Mallampati Class: III Mouth / Teeth: 2 1. Missing 2. Missing 3. Missing Missing side teeth and molars Neck + limited neck extension (mild) Respiratory normal respiratory effort; no respiratory distress Auscultation: lungs clear to auscultation bilaterally; no wheezes Cardiovascular Rate/Rhythm: regular rate and regular rhythm Heart Sounds: no murmur Vessels: no carotid bruit Musculoskeletal Spine: no pain with cervical ROM Extremities: extremities normal to inspection Psychiatric Orientation: alert Lab Results Anesthesia Preop Results Results Anesthesia Widget: 2 WBC 7.91 K/ul (4.8-10.8) 10/22/24 Hgb 15.0 g/dl (14.0-18.0) 10/22/24 Hct 44.1 % (42.0-52.0) 10/22/24 Plt 227 K/uL (130-400) 10/22/24 Na 138 mmol/L (136-145) 10/22/24 K 3.8 mmol/L (3.5-5.1) 10/22/24 Cl 104 mmol/L (98-107) 10/22/24 CO2 26 mmol/L (21-32) 10/22/24 BUN 24 mg/dl (6-23) H 10/22/24 Creat 0.79 mg/dl (0.6-1.4) 10/22/24 Glucose Level 114 mg/dl (70-99(Fasting)) H 10/22/24 PT 10.5 Seconds (9.0-12.0) 10/22/24 PTT 26 Seconds (21-31) 10/22/24 INR 1.0 (0.9-1.1) 10/22/24 TSH 1.113 uIu/ml (0.300-4.500) 10/22/24 HA1c 7.4 % (4.5-5.6) H 10/22/24 Blood Type O Negative 10/22/24 Antibody Screen NEGATIVE 10/22/24 Testing Electrocardiogram Date: 10/22/24 Findings: + SB @ (51bpm) Otherwise normal EKG per cardio Chest X-Ray Date: 10/22/24 Findings: + NAD Echocardiogram Date: 03/31/23 EF: 55-60% LV Function: normal RWMA: + none Other Findings: + diastolic dysfunction (Grade I ) Valvular Disease: + MR (mild) LA mildly dilated RV mildly dilated RA mildly dilated Borderline dilated ascending aorta This was essentially a normal study
[~2024-11-11 08:55] MED LIST changes: -ACETAMINOPHEN 500 MG TAB PO SCH; -BUPIVACAINE 0.5 % 5 MG/1 ML PF 10ML VIAL ONE; -BUPIVACAINE LIPOSOME/PF 266 MG, BUPIVACAINE/EPINEPHRINE 50 ML, SODIUM CHLORIDE 0.9% PF ... INFIL SCH; -CeleBREX 200 MG CAP PO SCH; +DEXAMETHASONE SOD INJ 4 MG/ML VIAL ONE; -FAMOTIDINE 20 MG TAB PO SCH; +GLYCOPYRROLATE 0.2 MG/ML VIAL ONE; +LIDOCAINE 2% 2 ML VIAL/AMP(20MG/ML) INFIL ONE; -LR 500ML BOLUS, THEN 15ML/HR IV SCH; -LR 60ML/HR IV SCH; -METOCLOPRAMIDE HCL 10 MG TABLET PO SCH; +MIDAZOLAM HCL 1 MG/ML 2ML VIAL ONE; +ONDANSETRON INJ 2 MG/ML 2 ML VIAL ONE; +PROPOFOL IV EMULSION 10 MG/ML 100 ML VIAL IV ONE; +PROPOFOL IV EMULSION 10 MG/ML 20 ML VIAL IV ONE; +REMIFENTANIL HCL 1 MG VIAL IV ONE; +ROCURONIUM BROMIDE 10 MG/ML 5 ML VIAL IV ONE; +SUGAMMADEX SODIUM 200 MG/2 ML VIAL IV ONE; -Scopolamine 1 MG TDSY TD SCH; -TRANEXAMIC ACID 1,000 MG **IV Pre-op IV SCH; +fentaNYL citrate PF 100 MCG/2 ML VIAL ONE
[2024-11-11] MEDS: LR 15ML/HR IV SCH (09:40)
[2024-11-11] MEDS: ACETAMINOPHEN 500 MG TAB PO SCH (09:43)
[2024-11-11] MEDS ORDERED: ONDANSETRON INJ 2 MG/ML 2 ML VIAL IV PRN ×2 (09:44→15:34)
[2024-11-11] MEDS ORDERED: ATROPINE SULFATE 0.1 MG/ML 10ML SYR IV PRN (09:44)
[2024-11-11] MEDS: GABAPENTIN 300 MG CAP PO SCH (09:44)
[2024-11-11] MEDS ORDERED: ePHEDrine sulfate 50 MG/ML AMP IV PRN (09:44)
[2024-11-11] MEDS ORDERED: fentaNYL citrate PF 100 MCG/2 ML VIAL IV PRN (09:44)
[2024-11-11] MEDS ORDERED: HYDROmorphone INJ 1 MG/ML SYRINGE IV PRN (09:44)
[2024-11-11] MEDS ORDERED: SUCCINYLCHOLINE CHLORIDE 20 MG/ML 10 ML VIAL IV ONE (10:26)
--- NOTE | 2024-11-11 10:36 | History & Physical Bridge Note ---
Date of Service November 11, 2024 History & Physical Bridge Note I have examined the patient, reviewed the History & Physical and in the interval since the performance of the History & Physical I have noted the following changes of clinical significance: no changes noted
[2024-11-11] MEDS ORDERED: REMIFENTANIL HCL 1 MG VIAL IV ONE (10:39)
[2024-11-11] MEDS ORDERED: PROPOFOL IV EMULSION 10 MG/ML 100 ML VIAL IV ONE (10:40)
[2024-11-11] MEDS ORDERED: KETAMINE HCL 10MG/ML SYR ONE (11:13)
[2024-11-11] MEDS: ceFAZolin 3000MG 3,000 MG/72.5 ML BAG IV SCH (11:33)
[2024-11-11] MEDS: VANCOMYCIN HCL 1000MG/20ML VIAL ONE (12:42)
[2024-11-11] MEDS: BUPIVACAINE/EPINEPHRINE 0.5% MPF 1:200,000 30 ML VIAL ONE (12:42)
[2024-11-11] MEDS: GELATIN SPONGE 12-7MM ONE (12:42)
[2024-11-11] MEDS: THROMBIN 5000 UNITS KIT ONE (12:42)
[2024-11-11] MEDS ORDERED: ROCURONIUM BROMIDE 10 MG/ML 5 ML VIAL IV ONE (13:57)
[2024-11-11] MEDS ORDERED: HYDROmorphone INJ 2 MG/ML SYR/VIAL ONE (13:58)
[2024-11-11] MEDS: FLOSEAL HEMOSTATIC MATRIX 5ML TOP ONE (14:42)
[2024-11-11] MEDS ORDERED: DO NOT ADMINISTER PNEUMOCOCCAL VACCINE PRN (15:34)
[2024-11-11] MEDS ORDERED: ACETAMINOPHEN 1,000 MG/100 ML VIAL IV PRN (15:34)
[2024-11-11] MEDS ORDERED: hydrOXYzine HCl 25 MG TAB PO PRN (15:34)
[2024-11-11] MEDS ORDERED: bisacodyL 10 MG SUPP PR PRN (15:34)
[2024-11-11] MEDS ORDERED: NALOXONE HCL 0.4 MG/1 ML VIAL/CARP IV PRN (15:34)
[2024-11-11] MEDS ORDERED: MAGNESIUM HYDROXIDE SUSP 30 ML UDC PO PRN (15:34)
[2024-11-11] MEDS ORDERED: ONDANSETRON 4 MG OD TAB PO PRN (15:34)
[2024-11-11] MEDS ORDERED: METOCLOPRAMIDE HCL INJ 5 MG/ML 2 ML VIAL IV PRN (15:34)
[2024-11-11] MEDS ORDERED: HYDROmorphone INJ 0.5 MG/0.5 ML SYR IV PRN (15:34)
[2024-11-11] MEDS ORDERED: DO NOT ADMINISTER FLU VACCINE PRN (15:34)
[2024-11-11] MEDS ORDERED: diphenhydrAMINE Capsule 25 MG CAP PO PRN (15:34)
[2024-11-11] MEDS ORDERED: SOD PHOSPHATE/SOD BIPHOSPHATE ENEMA 132 ML BTL PR PRN (15:34)
[2024-11-11] MEDS ORDERED: ALUMINUM/MAGNESIUM SUSP 30 ML UDC PO PRN (15:34)
[2024-11-11] MEDS ORDERED: PROMETHAZINE 12.5 MG/50.5 ML BAG IV PRN (15:34)
[2024-11-11] MEDS ORDERED: LORazepam 0.5 MG TAB PO PRN (15:34)
[2024-11-11] MEDS ORDERED: FAMOTIDINE 20 MG TAB PO PRN (15:34)
[2024-11-11] MEDS ORDERED: LORazepam 2 MG/1 ML VIAL IV PRN (15:34)
--- NOTE | 2024-11-11 15:34 | Post Operative Brief Note ---
PG Immediate Post Op with CF Date of Surgery November 11, 2024 Pre & Post Diagnosis Operation Date: 11/11/24 10:30 Pre-Op Diagnosis: (1) Degenerative spondylolisthesis: (2) Lumbar stenosis with neurogenic claudication: (3) Lumbar facet joint syndrome: Post-Op Diagnosis: (1) Degenerative spondylolisthesis: (2) Lumbar stenosis with neurogenic claudication: (3) Lumbar facet joint syndrome: I identified the patient and participated in the time-out.: Yes Procedure Operation Date: 11/11/24 10:30 Actual Procedures p L3-L4, L4-L5 Laminectomy and Decompression - Brennan Do MD Surgeon Brennan Do MD Head Doffer none Estimated Blood Loss 200 Findings Consistent with Post-Op Diagnosis Specimens Specimen Description: No specimen per surgeon Drains Villareal Catheter (16f villareal inserted prior to procedure start by Ava Nunez RN; 10cc in balloon; clear, yellow urine returned; leg strap applied)
--- NOTE | 2024-11-11 15:59 | Anesthesiology Progress Note ---
Date of Service November 11, 2024 Anesthesia Post Procedure Vital Signs Vital Signs: Temp Pulse Resp BP Pulse Ox O2 Del Method O2 Flow Rate 11/11/24 15:45 75 11 L 132/73 96 BiPAP 11/11/24 15:35 72 10 L 117/72 95 BiPAP 11/11/24 15:25 70 14 121/61 93 Oxymask 15 11/11/24 15:15 36.0 C L 65 13 113/56 L 78 L Oxymask 11/11/24 09:21 36.8 C 66 20 161/79 H 93 Room Air FiO2 11/11/24 15:45 50 11/11/24 15:35 50 11/11/24 15:25 11/11/24 15:15 11/11/24 09:21 Transfer of Care Handoff Completed per policy Notes Mental Status: alert / awake / arousable Patient Amnestic to Procedure: Yes Nausea / Vomiting: adequately controlled Pain: adequately controlled Airway Patency, RR, SpO2: stable & adequate BP & HR: stable & adequate Hydration State: stable & adequate Anesthetic Complications: no major complications apparent and Pt Satisfied with anesthetic care Notes: Patient temporarily placed on BiPaP post op for somnolence and obstruction. Now awake with stables. Pain controlled. D/C to floor
[2024-11-11] MEDS: LR 60ML/HR IV SCH (17:12)
--- NOTE | 2024-11-11 17:34 | Hospitalist Consultation ---
Date of Consultation November 11, 2024 Assessment & Plan (1) Lumbar stenosis with neurogenic claudication: Lumbar decompression laminectomy performed today, November 11. Orthopedic spine management (2) HTN (hypertension): Stable. Continue current medical management (3) Hypercholesterolemia: Stable. Continue current medical management (4) Type 2 diabetes mellitus: ADA diet. Sliding scale coverage as needed. Hold metformin temporarily Plan The hospitalist group will follow and manage the medical problems until he is discharged by the primary service History of Present Illness Reason for Consultation: Medical management Requesting Physician: Dr. Ryder Do Attending Physician: Brennan Do MD History of Present Illness 69-year-old obese white male who underwent lumbar decompression laminectomy earlier today by Dr. Do. The hospitalist medical team has been consulted for postoperative medical management Allergies Allergy/AdvReac Type Severity Reaction Status Date / Time bee venom protein (honey bee) Allergy Severe Full body Verified 11/11/24 09:19 swelling Home Medications Medication Instructions Recorded Confirmed Type atorvastatin 10 mg tablet 10 mg PO DAILY #90 tabs 02/20/24 11/11/24 Rx betamethasone dipropionate 0.05 % 1 applic topical DAILY PRN rash 02/29/24 11/11/24 Rx topical cream #45 grams losartan 50 mg-hydrochlorothiazide 1 tab PO BID #180 tabs 03/04/24 11/11/24 Rx 12.5 mg tablet doxazosin 4 mg tablet 4 mg PO DAILY #90 tabs 05/10/24 11/11/24 Rx clonidine HCl 0.3 mg tablet 0.3 mg PO Q12H #180 tabs 09/02/24 11/11/24 Rx aspirin 325 mg capsule 325 mg PO DAILY PRN Pain 10/21/24 11/11/24 History metformin 500 mg tablet 500 mg PO BID #180 tabs 10/25/24 11/11/24 Rx Patient History Medical History Benign essential hypertension Chronic low back pain Degenerative spondylolisthesis History of prostate cancer (2015) s/p prostatectomy, no chemo or radiation Hx of basal cell carcinoma s/p excision Hx of Graves' disease no longer takes medications TSH WNL on 10/22/24 Hypercholesteremia Lumbar stenosis with neurogenic claudication Reactive airway disease no longer follows with Dr. Archer (pulm) Snores No sleep study Type 2 diabetes mellitus Surgical History History of basal cell carcinoma (BCC) excision History of tonsillectomy and adenoidectomy S/P appendectomy S/P prostatectomy (2016) prostate ca S/P shoulder surgery S/P total left hip arthroplasty (03/25/23) Status post carpal tunnel release right Family History Father Chronic bronchitis Mother Hypertension Stroke syndrome Denies family history of Ovarian cancer Prostate cancer Myocardial infarction Breast cancer Colorectal cancer Social History Smoking Status: Former smoker Tobacco Type: Cigarettes Age Started Using Tobacco: 14; Age Quit Using Tobacco: 52; packs per day: 1; Smoking End Date: quit 2007; Second Hand Exposure: No; Do You Dip or Chew Tobacco: No; Tobacco Cessation Education Requested by Patient: No Hx Alcohol Use: No Hx Substance Use: No Preferred Language: Yemeni Communication Ability: Effective Communication Tools: Language Line Jewelry Facer Visual Impairment: No Limitations Hearing Ability: Normal Jewelry Facer Required: Yes Beliefs That Will Affect Care: None marital status: Current Living Situation: Spouse current occupational status: retired current occupation: [id number] How many Children do You have: 2 Other Information That Helps Us Care for You: No Feels Safe at Home: Yes Safety Concerns: Feels Safe At This Time Childhood Exposure to Second-Hand Smoke: No Diet: regular caffeine: Yes Dental Care, Regularly: Yes Physical Activity Frequency: Daily Seatbelt Use: always Sunscreen Use: No Assistive Devices: Cane Review of Systems Review of Systems: Constitutionalno fever or chills ENTno blurred vision, no double vision, no epistaxis, no sore throat. Chronic closure of left eye Respiratoryno cough, no wheezing, no shortness of breath Cardiacno palpitations, no chest pain, no syncope Enrique nausea, vomiting, diarrhea, melena, hematochezia GUno urinary retention, no urinary incontinence, no dysuria, no hematuria Musculoskeletalpostoperative lumbar discomfort as expected. No joint pain, no muscle tenderness Skinno bruising, no rashes, no pruritus Neurono isolated weakness, no paresthesia, no weakness Psychno depression, no anxiety Physical Exam Physical Exam: General-alert and oriented x3, no fever, no chills. Obese HEENT-head atraumatic and normocephalic, chronic left eye closure. Right pupil reactive to light Neck-no lymphadenopathy or thyromegaly, trachea midline Chest-clear to auscultation. No rales, wheezing or rhonchi Cardiac-regular rate and rhythm, normal S1 and S2 Abdomen-normal bowel sounds, no hepatosplenomegaly Musculoskeletallumbar area is bandaged Extremities-no cyanosis, clubbing, or edema Neuro-cranial nerves II through XII intact, motor and sensory function within normal limits, strength symmetrical, no focal deficits Psych-normal affect, normal mood Results & Data Results & Data Vital Signs (Past 12 Hours) Vital Signs Temp Pulse Pulse Resp BP Pulse Ox O2 Del Method 11/11/24 17:15 Nasal Cannula 11/11/24 17:15 37.1 C 86 18 107/56 L 93 Nasal Cannula 11/11/24 16:25 77 12 99/51 L 95 BiPAP 11/11/24 16:15 76 13 108/49 L 94 BiPAP 11/11/24 16:05 85 13 105/85 97 BiPAP 11/11/24 15:55 84 14 135/76 98 BiPAP 11/11/24 15:45 75 11 L 132/73 96 BiPAP 11/11/24 15:35 72 10 L 117/72 95 BiPAP 11/11/24 15:30 23 95 11/11/24 15:25 70 14 121/61 93 Oxymask 11/11/24 15:15 36.0 C L 65 13 113/56 L 78 L Oxymask 11/11/24 09:21 36.8 C 66 20 161/79 H 93 Room Air O2 Flow Rate FiO2 11/11/24 17:15 6 11/11/24 17:15 6 11/11/24 16:25 50 11/11/24 16:15 50 11/11/24 16:05 50 11/11/24 15:55 50 11/11/24 15:45 50 11/11/24 15:35 50 11/11/24 15:30 50 11/11/24 15:25 15 11/11/24 15:15 11/11/24 09:21 PG Care Time/CCT Total # of Minutes Spent Total Time Spent with Patient: Total time spent is greater than 50% in coordination of care (as documented) at patient's floor/unit and/or counseling patient: Coding Level of Care Code 86134 IN/OBS CONSULT LVL 3,45M Diagnoses Lumbar stenosis with neurogenic claudication M48.062 Primary hypertension I10 Hypertension type: primary hypertension Hypercholesterolemia E78.00 Type 2 diabetes mellitus without complication, without long-term current use of insulin E11.9 Diabetes mellitus [facility] insulin use: without superintendent container 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
[2024-11-11] MEDS ORDERED: GLUCOSE 10 TAB/TUBE PO PRN (17:35)
[2024-11-11] MEDS ORDERED: CARBOHYDRATES FOR HYPOGLYCEMIA PO PRN (17:35)
[2024-11-11] MEDS ORDERED: DEXTROSE 50% 50 ML SYRINGE IV PRN (17:35)
[2024-11-11] MEDS ORDERED: GLUCOSE 40% GEL 15 GM TUBE PO PRN (17:35)
[2024-11-11] MEDS ORDERED: GLUCAGON FOR INJ 1 MG VIAL SQ PRN (17:35)
[2024-11-11] MEDS: ACETAMINOPHEN 500 MG TAB PO PRN (19:28)
[2024-11-11] MEDS: cloNIDine HCL 0.3 MG TAB PO SCH (19:28)
[2024-11-11] MEDS: ceFAZolin 2000MG 2,000 MG/15 ML SYR IV SCH (19:28)
[2024-11-11] MEDS: LOSARTAN/HCTZ 50/12.5MG TAB PO SCH (19:29)
[2024-11-11] MEDS: INSULIN ASPART PER UNIT CHARGE SC SCH (20:58)
[2024-11-11] MEDS ORDERED: metFORMIN HCL 500 MG TAB PO SCH (21:00)
[2024-11-11] MEDS: DOCUSATE SODIUM/SENNA 50/8.6MG TAB PO SCH (21:08)
[2024-11-12] MEDS: POLYETHYLENE (MIRALAX) 17 GM PACK PO SCH (05:46)
--- NOTE | 2024-11-12 07:52 | Orthopedic Progress Note ---
Date of Service November 12, 2024 Subjective Pt seen and examined, notes improvement in lower extremities. Dressing with some drainage. Plan: Mobilize with PT today for potential DC tomorrow. Review of Systems All systems reviewed & are unremarkable except as noted in HPI & below. Physical Exam . Results & Data Results & Data Laboratory Results . Diagnostic Findings . PG Care Time/CCT Total # of Minutes Spent Total Time Spent with Patient: Total time spent is greater than 50% in coordination of care (as documented) at patient's floor/unit and/or counseling patient: Coding Level of Care Code 12005 Post Operative Follow-Up
--- NOTE | 2024-11-12 08:38 | Fluoroscopy Report ---
FL lumbar spine 2-3V CLINICAL HISTORY: L3-4, L4-5.. LAMI AND DECOMP TECHNIQUE: 1 views were obtained with the C-arm in the OR with the above procedure. Total fluoroscopy time was 34.5 seconds. Radiation dose was 28.34 mGy. Comparison: Comparison is made to MRI lumbar spine 11/17/2023 FINDINGS/IMPRESSION: Intraoperative images were obtained of L3-L5 laminectomy and decompression. Please correlate with intraoperative fluoroscopy and operative report. ACT 112: Negative or not required by law. Electronically signed by: Benson Diaz M.D. 11/12/2024 8:37 AM
[2024-11-12] MEDS: DOXAZosin MESYLATE 4 MG TAB PO SCH (08:49)
--- NOTE | 2024-11-12 16:05 | Hospitalist Progress Note ---
Date of Service November 12, 2024 Assessment & Plan (1) Lumbar stenosis with neurogenic claudication: Plan: Lumbar decompression laminectomy performed on November 11. Postoperative day #1. Orthopedic spine management (2) HTN (hypertension): Plan: Stable. Continue current medical management (3) Hypercholesterolemia: Plan: Stable. Continue current medical management (4) Type 2 diabetes mellitus: Plan: ADA diet. Sliding scale coverage as needed. Metformin was restarted today, November 12. Plan The hospitalist group will follow and manage the medical problems until he is discharged by the primary service. Possible discharge tomorrowNovember 13 Admission and Anticipated Discharge Date Admission Date: November 11, 2024 Subjective Alert and oriented. No distress. Unfortunately, he does not speak any Turkish. Orthopedic spine entry noted. Possible discharge to home tomorrow, November 13. Metformin has been restarted. Review of Systems Review of Systems: Constitutionalno fever or chills ENTno blurred vision, no double vision, no epistaxis, no sore throat. Chronic closure of left eye Respiratoryno cough, no wheezing, no shortness of breath Cardiacno palpitations, no chest pain, no syncope Enrique nausea, vomiting, diarrhea, melena, hematochezia GUno urinary retention, no urinary incontinence, no dysuria, no hematuria Musculoskeletalpostoperative lumbar discomfort as expected. No joint pain, no muscle tenderness Skinno bruising, no rashes, no pruritus Neurono isolated weakness, no paresthesia, no weakness Psychno depression, no anxiety Physical Exam Physical Exam: General-alert and oriented x3, no fever, no chills. Obese HEENT-head atraumatic and normocephalic, chronic left eye closure. Right pupil reactive to light Neck-no lymphadenopathy or thyromegaly, trachea midline Chest-clear to auscultation. No rales, wheezing or rhonchi Cardiac-regular rate and rhythm, normal S1 and S2 Abdomen-normal bowel sounds, no hepatosplenomegaly Musculoskeletallumbar area is bandaged Extremities-no cyanosis, clubbing, or edema Neuro-cranial nerves II through XII intact, motor and sensory function within normal limits, strength symmetrical, no focal deficits Psych-normal affect, normal mood Results & Data Results & Data Vital Signs (Past 12 Hours) Vital Signs Temp Pulse Resp BP Pulse Ox O2 Del Method O2 Flow Rate 11/12/24 14:09 37.0 C 75 17 122/70 93 Nasal Cannula 2 11/12/24 11:00 37.2 C 66 16 109/62 90 Room Air 11/12/24 08:50 Nasal Cannula 4 11/12/24 07:42 36.6 C 77 16 121/68 97 Nasal Cannula 4 11/12/24 04:21 36.5 C 74 18 105/60 96 Nasal Cannula 6 Laboratory Results Mglau-ke-urxt glucose 170 this morning PG Care Time/CCT Total # of Minutes Spent Total Time Spent with Patient: Total time spent is greater than 50% in coordination of care (as documented) at patient's floor/unit and/or counseling patient: Coding Level of Care Code 62718 SUB INP/OBS CARE 2MIN Diagnoses Lumbar stenosis with neurogenic claudication M48.062 Primary hypertension I10 Hypertension type: primary hypertension Hypercholesterolemia E78.00 Type 2 diabetes mellitus without complication, without long-term current use of insulin E11.9 Diabetes mellitus [facility] insulin use: without [facility] use Diabetes mellitus complication status: without complication (2) HTN (hypertension) Hypertension type: primary hypertension Qualified Code(s): I10 - Essential (primary) hypertension (4) Type 2 diabetes mellitus Diabetes mellitus [facility] insulin use: without [facility] use Diabetes mellitus complication status: without complication Qualified Code(s): E11.9 - Type 2 diabetes mellitus without complications
[2024-11-12] MEDS: oxyCODONE/ACETAMINOPHEN 5mg/325mg TAB PO PRN (16:17)
[2024-11-12] MEDS: metFORMIN HCL 500 MG TAB PO SCH (17:33)
[2024-11-13] MEDS: KETOROLAC TROMETHAMINE 15 MG/ML VIAL IV ONE (09:31)
--- NOTE | 2024-11-13 11:36 | Hospitalist Progress Note ---
Date of Service November 13, 2024 Assessment & Plan (1) Lumbar stenosis with neurogenic claudication: Plan: Lumbar decompression laminectomy performed on November 11. Postoperative day #2. Orthopedic spine management (2) HTN (hypertension): Plan: Blood pressure is on the low side today. Antihypertensive will be held today, November 13. They can be restarted as usual tomorrow, November 14 (3) Hypercholesterolemia: Plan: Stable. Continue current medical management (4) Type 2 diabetes mellitus: Plan: ADA diet. Sliding scale coverage as needed. Metformin was restarted on November 12. Plan Medically stable for discharge home today, November 13, per primary service. Blood pressure medications are on hold today and can be restarted tomorrow, November 14 Admission and Anticipated Discharge Date Admission Date: November 11, 2024 Subjective Alert and oriented. Unfortunately he does not speak or understand Lithuanian. He passed his two-step oxygen evaluation. He does not need home oxygen. Blood pressure is a little bit soft and current blood pressure medications will be held today, November 13. He can restart his usual medications tomorrow, November 14. He is medically stable for discharge home today Review of Systems Review of Systems: Constitutionalno fever or chills ENTno blurred vision, no double vision, no epistaxis, no sore throat. Chronic closure of left eye Respiratoryno cough, no wheezing, no shortness of breath Cardiacno palpitations, no chest pain, no syncope Enrique nausea, vomiting, diarrhea, melena, hematochezia GUno urinary retention, no urinary incontinence, no dysuria, no hematuria Musculoskeletalpostoperative lumbar discomfort as expected. No joint pain, no muscle tenderness Skinno bruising, no rashes, no pruritus Neurono isolated weakness, no paresthesia Psychno depression, no anxiety Physical Exam Physical Exam: General-alert and oriented x3, no fever, no chills. Obese HEENT-head atraumatic and normocephalic, chronic left eye closure. Right pupil reactive to light Neck-no lymphadenopathy or thyromegaly, trachea midline Chest-clear to auscultation. No rales, wheezing or rhonchi Cardiac-regular rate and rhythm, normal S1 and S2 Abdomen-normal bowel sounds, no hepatosplenomegaly Musculoskeletallumbar area is bandaged Extremities-no cyanosis, clubbing, or edema Neuro-cranial nerves II through XII intact, motor and sensory function within normal limits, strength symmetrical, no focal deficits Psych-normal affect, normal mood Results & Data Results & Data Vital Signs (Past 12 Hours) Vital Signs Temp Pulse Pulse Pulse Resp Resp Resp 11/13/24 10:38 75 72 19 18 11/13/24 09:30 11/13/24 07:15 36.7 C 62 16 11/13/24 05:51 11/13/24 02:47 37 C 64 16 BP Pulse Ox Pulse Ox Pulse Ox O2 Del Method O2 Flow Rate 11/13/24 10:38 94 93 11/13/24 09:30 94/57 L 11/13/24 07:15 117/62 94 Nasal Cannula 2 11/13/24 05:51 110/65 11/13/24 02:47 99/56 L 95 Nasal Cannula 2 PG Care Time/CCT Total # of Minutes Spent Total Time Spent with Patient: Total time spent is greater than 50% in coordination of care (as documented) at patient's floor/unit and/or counseling patient: Coding Level of Care Code 59779 SUB INP/OBS CARE 235MIN Diagnoses Lumbar stenosis with neurogenic claudication M48.062 Primary hypertension I10 Hypertension type: primary hypertension Hypercholesterolemia E78.00 Type 2 diabetes mellitus without complication, without long-term current use of insulin E11.9 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
--- NOTE | 2024-11-13 12:44 | Discharge Summary ---
Date of Service November 13, 2024 Admission HPI Per Admitting Provider 07/10/24: "68-year-old gentleman referred here for evaluation for low back pain and lower extremity symptoms. He is Sudanese-speaking, his who speaks Citizen Of [place] is with him, and she notes he has had chronic low back pain for a number of years. It is worse when he does any prolonged standing or walking, improves when he is sitting or resting, and it tends to bother him not only in terms of lower lumbar spine but also in the lower legs with some heaviness. He has pain with transitions, he has been through pain management with injections, the most recent was on May 13, 2024 without any notable improvement, an L4-5 interlaminar injection and 1 previous on January 01. He has not had any success with physical therapy or other efforts, he is here for evaluation and recommendations due to the significant issue that he is having at this time. Exam reveals the patient to gait pain across the lumbosacral junction. While holding onto table he is able to raise up on toes and heels without any obvious weakness. While sitting I could not elicit any significant knee or ankle reflexes, no notable symptoms on straight leg raise and no focal motor weakness. 4 views lumbar spine taken for today's office reveal the patient to have on AP view left total hip replacement, the right hip maintains proper joint space a very minimal amount of levoscoliosis is present, and a lateral view can be seen that the disc bases are maintained, there is grade 1 anterolisthesis in the range of around 3 mm, this is also in comparison to the MRI images from November 17, 2023 which reveals the spinal listhesis to be reduced. Review of MRI images of the lumbar spine from [facility] from November 17, 2023, this my separate rotation, this reveals the patient to have main findings to be at L3-4 and L4-5 where there is moderate to severe stenosis at L3-4 and severe stenosis at L4-5 due to thickened ligamentum flavum and facet arthropathy, some limited disc bulging. Impression: Combination lumbar stenosis at L3-4 and L4-5 with degenerative spondylolisthesis at L4-5. Plan: Today I reviewed the imaging studies with the patient and his and went over these in great detail. At this time as the patient has failed con servative measures, I told him he would be appropriate for surgical intervention. We discussed either procedure of lumbar decompression at L3-4 and L4-5 but due to the amount of slippage noted at L3-4, I am recommending arthrodesis at that level due to instability that I think will continue to progress. This would be a posterior approach with decompression of both these levels and then instrumentation and posterolateral fusion at L4-5. I went on to describe the technical details of how the surgery is performed, along with a discussion of hospital postoperative course. Also discussed with the potential risks associate the procedure including but not as close to chance of infection, neurologic injury, need for additional procedures, and anesthesia risks. Of note is that I also recommended patient work on weight reduction which I think will help benefit him long-term. They were in agreement with this plan we will work to get him scheduled at some point in the near future." 10/28/24: "Patient here for preoperative visit, he has no change in his symptomatology, he is accompanied by his . He has upcoming surgery with decompression at L3-4 and L4-5 on November 11 with potential posterior fusion and instrumentation at L4- 5. No changes in examination, no focal motor weakness. Impression/plan: Lumbar stenosis with degenerative spondylolisthesis at L4-5. Today I had a discussion with the patient and his , I related that our surgery will at least include decompression of both these levels, if I feel there is no significant change in terms of the facets I can get adequate decompression we may forego the fusion part with the idea that if he does need an arthrodesis at some point in future this can be done through a lateral cage and percutaneous instrumentation. I went into a lengthy discussion about this potential treatment plan, they are in agreement with that noting the decreased amount of surgical dissection, we will see the patient back in postoperative visit 2 weeks." Admission Exam (Per Admitting) Musculoskeletal Exam reveals the patient to gait pain across the lumbosacral junction. While holding onto table he is able to raise up on toes and heels without any obvious weakness. While sitting I could not elicit any significant knee or ankle reflexes, no notable symptoms on straight leg raise and no focal motor weakness. Discharge Data Consultations 11/11/24 15:34 Consult Hospitalist Routine Procedures Performed Operation Date: 11/11/24 10:30 Actual Procedures p L3-L4, L4-L5 Laminectomy and Decompression, Fusion with Open Posterior Intrumentation Nonsegmented, Spinal Cord Monitoring(Not Applicable) - Brennan Do MD Hospital Course (1) Lumbar stenosis with neurogenic claudication: (2) Status post lumbar surgery: Plan On November 11, 2024 Jax arrived at [facility] operating room and underwent an L3-4, 45 lumbar laminectomy and decompression without complications. Patient had general anesthesia for the procedure. Patient was admitted to the general orthopedic floor in stable condition postoperatively for pain control and mobilization with physical therapy; they safely and properly performed the ADL tasks demonstrated by PT/OT and met all goals. Pain was controlled with IV pain medication, with a transition to oral medications. Normal return of bowel and bladder function. They worked with therapy, vital signs were acceptable, no need for transfusion, deemed safe for discharge. Patient passed a respiratory therapy two-step oxygen evaluation and was deemed to not need any home oxygen therapy at discharge. Patient was then discharged home in stable condition, with self-care and assistance from his and daughters. Patient will follow-up with Dr. Do in the orthospine clinic in approximately 2 weeks, as scheduled, for postoperative care.
--- NOTE | 2024-11-13 12:44 | Orthopedic Progress Note ---
Date of Service November 13, 2024 Assessment & Plan (1) Status post lumbar surgery: (2) Lumbar stenosis with neurogenic claudication: Plan SPINE: 69-year-old male POD#2 s/p L3-4, 4-5 laminectomy and decompression, doing well overall. He is having some left gluteal and posterior thigh region intermittent cramping, but pain is relatively well-controlled overall. Pre-op lower extremity symptomatology remains improved. He is neurologically intact. Orthopedically stable for discharge after completing 2-step respiratory therapy oxygen evaluation; RT reported that home oxygen not needed. Plan: 1. DVT prophylaxis w/ regular ambulation/mobilization. 2. PT/OT at home as taught while inpatient. 3. Rx for Percocet and tizanidine sent to pharmacy. 4. Dressing changes and showering per discharge instructions section. 5. Disposition - D/C home today; 2-step RT oxygen evaluation completed with no need for home oxygen therapy. 6. F/u as scheduled on 11/26/24 w/ Dr. Do for first post-op visit. Admission and Anticipated Discharge Date Admission Date: November 11, 2024 Subjective Patient is POD# 2 s/p L3-4, 45 lumbar laminectomy and decompression by Dr. Do on 11/11/2024. Patient says his pain is relatively well-controlled this morning, as long as he is able to continue to receive the oral pain medications. Denies CP, SOB, N/V, B/L LE paresthesia; does report some left gluteal and hamstring spasms. Patient says that he would have assistance from his and daughters if he returns home, which is his plan. Patient says that he will be ready to go home later today as long as he is able to get a prescription for pain medicine sent to his pharmacy. Physical Exam Physical Exam: GENERAL:Patient speaks Green[place]ic and can minimally converse in Vietnamese by answering questions with a yes or no. Patient's is on the phone to translate. Mood and affect is appropriate. Does not appear in acute distress. HEAD: Normocephalic; atraumatic. CHEST: Regular chest respiration and excursion. NEURO: Awake, alert, and oriented x 3. BACK: Dressing was being changed while I was in the room, with avelino intact and incision well-appearing with no active drainage. No evidence of erythema or abnormal warmth. LOWER EXTREMITIES: Sensation intact to light touch of the bilateral L2-S1 dermatomes. Plantar/dorsiflexion intact bilaterally. NVI distally. Does report some left buttocks and hamstring spasm during exam. Results & Data Vital Signs (Past 12 Hours) Vital Signs Temp Pulse Pulse Pulse Resp Resp Resp 11/13/24 11:57 51 L 11/13/24 11:43 36.7 C 62 16 11/13/24 10:38 75 72 19 18 11/13/24 09:30 11/13/24 07:15 36.7 C 62 16 11/13/24 05:51 11/13/24 02:47 37 C 64 16 BP Pulse Ox Pulse Ox Pulse Ox O2 Del Method O2 Flow Rate 11/13/24 11:57 96/56 L 11/13/24 11:43 94/57 L 94 11/13/24 10:38 94 93 11/13/24 09:30 94/57 L 11/13/24 07:15 117/62 94 Nasal Cannula 2 11/13/24 05:51 110/65 11/13/24 02:47 99/56 L 95 Nasal Cannula 2
[2024-11-13] MEDS: SODIUM CHLORIDE 0.9% 250 ML IV ONE (12:57)
[2024-11-13 13:24] VITALS: BP 112/68; PULSE 67; RESP 17; TEMP 98.4; O2SAT 93
[2024-11-13] MEDS: tiZANidine HCL 4 MG TABLET PO PRN (13:55)
--- NOTE | 2024-11-14 09:21 | Operative Report ---
PG Post Operative Report Pre & Post Diagnosis Operation Date: 11/11/24 10:30 Pre-Op Diagnosis: (1) Degenerative spondylolisthesis: (2) Lumbar stenosis with neurogenic claudication: (3) Lumbar facet joint syndrome: Post-Op Diagnosis: (1) Degenerative spondylolisthesis: (2) Lumbar stenosis with neurogenic claudication: (3) Lumbar facet joint syndrome: I identified the patient and participated in the time-out.: Yes Procedure Operation Date: 11/11/24 10:30 Actual Procedures p L3-L4, L4-L5 Laminectomy and Decompression, Fusion with Open Posterior Intrumentation Nonsegmented, Spinal Cord Monitoring(Not Applicable) - Brennan Do MD Surgeon Brennan Do MD Housing Assistant Property Manager none Estimated Blood Loss 200 Findings Consistent with Post-Op Diagnosis Specimens none Description of Procedure 1. L3-4 posterior lumbar laminectomy/decompression. (38872) 2. L4-5 posterior lumbar laminectomy/decompression. ([id number]) Patient was taken the operating room after adequate anesthesia was carefully positioned prone on the Kade frame and checked for positioning. Preprep was performed followed by bringing in fluoroscopy for marked for the location of the incision to encompass the L3-4 and L4-5 region. Prep and drape was performed, midline incision was then made in the area marked and advanced down through the subcutaneous tissues. I dissected down on either side of the spinous processes exposing the interlaminar region at L3-4 and L4-5, this was confirmed fluoroscopically. Retractors were set, I then began the decompression with removal of spinous process in the area of the interlaminar region and bilateral hemilaminectomies partial medial facetectomies and foraminotomies for starting at the L3-4 level. This included decompressing the exiting L3 and L4 nerve roots bilaterally. Upon completion I then moved to the L4-5 level where a similar procedure performed with the bilateral laminectomy partial medial facetectomy and foraminotomy and decompression of the exiting nerve roots. The operative site was irrigated thoroughly and explored no issues were noted. Vancomycin powder was placed, the operative site was closed using 0 Vicryl sutures and 2 layers followed by 2-0 Vicryl sutures and avelino for the skin. Sterile dressing was applied, the patient was then taken recovery room in satisfactory condition. I attest to the content of the Intraoperative Record and any orders documented therein. Any exceptions are noted below.
== END 2024-11-13 15:09 | disposition home or self-care (01) | DRG 517 ==
LOC: ASU 08:55 → 3N 15:34